=== PATIENT | male | born 1955 | race Caucasian/White ===

== ENCOUNTER 2019-05-05 10:19 | Inpatient (IN) | payer BC ==
[2019-05-05] MEDS ORDERED: ACETAMINOPHEN TAB 500 MG TAB PO STA (11:26)
[2019-05-05] MEDS ORDERED: PANTOPRAZOLE 40 MG/10 ML VIAL IVP STA (11:27)
--- NOTE | 2019-05-05 11:31 | ED ---
General Adult HPI - General Chief complaint: GI Bleed Stated complaint: abd pain/dark stool/poss dehydration Time Seen by Provider: 05/05/19 10:58 Source: patient, family, RN notes reviewed Mode of arrival: ambulatory Limitations: no limitations - History of Present Illness Initial comments: Patient is a pleasant 63-year-old male presenting to the emergency Department with diarrhea, abdominal discomfort and fever. Onset of symptoms was several days ago. Patient is having watery stool. Stool at times is dark or black or green. Patient has had decreased appetite and decreased oral intake. Patient has discomfort mostly of his lower abdomen, mostly in the left side. Patient has had fevers chills and myalgias. No history of similar symptoms previously. Patient does feel somewhat fatigued. - Related Data Home Medications Medication Instructions Recorded Confirmed No Known Home Medications 10/19/15 05/05/19 Allergies Allergy/AdvReac Type Severity Reaction Status Date / Time gluten AdvReac congested Verified 05/05/19 11:50 latex AdvReac congested Verified 05/05/19 11:50 Review of Systems ROS Statement: Those systems with pertinent positive or pertinent negative responses have been documented in the HPI. ROS Other: All systems not noted in ROS Statement are negative. Constitutional: Reports: fever, chills Eyes: Denies: eye pain ENT: Denies: ear pain Respiratory: Denies: cough, dyspnea Cardiovascular: Denies: chest pain Endocrine: Reports: fatigue Gastrointestinal: Reports: abdominal pain, diarrhea, melena Genitourinary: Denies: dysuria Musculoskeletal: Denies: back pain Skin: Denies: rash Neurological: Denies: headache Past Medical History Additional Past Medical History / Comment(s): tinnitis History of Any Multi-Drug Resistant Organisms: None Reported Past Surgical History: Orthopedic Surgery Additional Past Surgical History / Comment(s): arthroscopy knee,colonoscopy Past Anesthesia/Blood Transfusion Reactions: No Reported Reaction Smoking Status: Never smoker Past Alcohol Use History: None Reported Past Drug Use History: None Reported - Past Family History Mother Family Medical History: Cancer Additional Family Medical History / Comment(s): breast Father Family Medical History: Liver Disease General Exam Limitations: no limitations General appearance: alert, in no apparent distress Head exam: Present: normocephalic Eye exam: Present: normal appearance, PERRL ENT exam: Present: normal oropharynx Neck exam: Present: normal inspection Respiratory exam: Present: normal lung sounds bilaterally Cardiovascular Exam: Present: normal rhythm, tachycardia Expanded Peripheral pulses: 2+: Posterior Tibialis (R), Posterior Tibialis (L), Dorsalis Pedis (R), Dorsalis Pedis (L) GI/Abdominal exam: Present: soft, tenderness (Mild tenderness left lower abdomen), normal bowel sounds. Absent: distended, guarding, rebound, rigid, pulsatile mass Rectal exam: Present: normal inspection, normal rectal tone, other (No stool on exam) Extremities exam: Present: normal inspection Back exam: Present: normal inspection Neurological exam: Present: alert Psychiatric exam: Present: normal affect, normal mood Skin exam: Present: normal color Course Vital Signs 05/05/19 05/05/19 10:28 11:28 Temperature 100.4 F H 98.3 F Pulse Rate 139 H Respiratory 18 Rate Blood Pressure 101/68 O2 Sat by Pulse 97 Oximetry - Reevaluation(s) Reevaluation #1: 05/05/19 13:21 Patient does meet sepsis criteria diagnosed at 1320. Blood culture and lactic acid ordered. IV antibiotics will be ordered. EKG Findings - EKG Comments: EKG Findings:: Normal sinus rhythm 96. UT 166. QRS 84. QT 358. C4 2. Normal axis. Normal QRS. No acute ST change. Medical Decision Making - Medical Decision Making Patient reevaluated and resting comfortably in bed. Patient and family updated on results and plan. Case was discussed in detail with Dr. lopez, covering for Dr. Anthony asked, who will admit covering for Dr. Melton. He does request GI consult and Zosyn. - Lab Data Result diagrams: 05/05/19 11:20 05/05/19 11:20 Lab Results 05/05/19 05/05/19 05/05/19 Range/Units 11:20 11:20 11:20 WBC 7.4 (3.8-10.6) k/uL RBC 5.40 (4.30-5.90) m/uL Hgb 16.4 (13.0-17.5) gm/dL Hct 48.1 (39.0-53.0) % MCV 89.1 (80.0-100.0) fL MCH 30.4 (25.0-35.0) pg MCHC 34.1 (31.0-37.0) g/dL RDW 12.4 (11.5-15.5) % Plt Count 116 L (150-450) k/uL Neutrophils % 92 % Lymphocytes % 3 % Monocytes % 4 % Eosinophils % 1 % Basophils % 0 % Neutrophils # 6.8 (1.3-7.7) k/uL Lymphocytes # 0.2 L (1.0-4.8) k/uL Monocytes # 0.3 (0-1.0) k/uL Eosinophils # 0.0 (0-0.7) k/uL Basophils # 0.0 (0-0.2) k/uL PT (9.0-12.0) sec INR (<1.2) APTT (22.0-30.0) sec Sodium 129 L (137-145) mmol/L Potassium 3.9 (3.5-5.1) mmol/L Chloride 93 L (98-107) mmol/L Carbon Dioxide 21 L (22-30) mmol/L Anion Gap 15 mmol/L BUN 19 (9-20) mg/dL Creatinine 1.09 (0.66-1.25) mg/dL Est GFR (CKD-EPI)AfAm 84 (>60 ml/min/1.73 sqM) Est GFR (CKD-EPI)NonAf 72 (>60 ml/min/1.73 sqM) Glucose 158 H (74-99) mg/dL Plasma Lactic Acid Zechariah 1.8 (0.7-2.0) mmol/L Calcium 9.0 (8.4-10.2) mg/dL Total Bilirubin 1.7 H (0.2-1.3) mg/dL AST 105 H (17-59) U/L ALT 115 H (4-49) U/L Alkaline Phosphatase 136 H (38-126) U/L Total Protein 7.1 (6.3-8.2) g/dL Albumin 4.2 (3.5-5.0) g/dL Stool Occult Blood (Negative) 05/05/19 05/05/19 Range/Units 11:20 11:20 WBC (3.8-10.6) k/uL RBC (4.30-5.90) m/uL Hgb (13.0-17.5) gm/dL Hct (39.0-53.0) % MCV (80.0-100.0) fL MCH (25.0-35.0) pg MCHC (31.0-37.0) g/dL RDW (11.5-15.5) % Plt Count (150-450) k/uL Neutrophils % % Lymphocytes % % Monocytes % % Eosinophils % % Basophils % % Neutrophils # (1.3-7.7) k/uL Lymphocytes # (1.0-4.8) k/uL Monocytes # (0-1.0) k/uL Eosinophils # (0-0.7) k/uL Basophils # (0-0.2) k/uL PT 10.8 (9.0-12.0) sec INR 1.1 (<1.2) APTT 28.5 (22.0-30.0) sec Sodium (137-145) mmol/L Potassium (3.5-5.1) mmol/L Chloride (98-107) mmol/L Carbon Dioxide (22-30) mmol/L Anion Gap mmol/L BUN (9-20) mg/dL Creatinine (0.66-1.25) mg/dL Est GFR (CKD-EPI)AfAm (>60 ml/min/1.73 sqM) Est GFR (CKD-EPI)NonAf (>60 ml/min/1.73 sqM) Glucose (74-99) mg/dL Plasma Lactic Acid Zechariah (0.7-2.0) mmol/L Calcium (8.4-10.2) mg/dL Total Bilirubin (0.2-1.3) mg/dL AST (17-59) U/L ALT (4-49) U/L Alkaline Phosphatase (38-126) U/L Total Protein (6.3-8.2) g/dL Albumin (3.5-5.0) g/dL Stool Occult Blood Positive (Negative) - Radiology Data Radiology results: report reviewed (Computed tomography scan concerning for colitis) Critical Care Time Critical Care Time: Yes Total Critical Care Time: 32 Disposition Clinical Impression: Gastrointestinal hemorrhage, Colitis, Sepsis Disposition: ADMITTED IP TO THIS [facility] Is patient prescribed a controlled substance at d/c from ED?: No Referrals: Anish Melton DO [Primary Care Provider] - 1-2 days Decision Time: 13:20
[2019-05-05] MEDS: SODIUM CHLORIDE 0.9% 1,000 ML IV SCH ×2 (11:35→20:39)
[2019-05-05] MEDS: SODIUM CHLORIDE 0.9% 500 ML 500 ML IV SCH ×2 (11:35→11:36)
[2019-05-05 11:37] LABS: Basophils % (A) 0 %; Eosinophils % (A) 1 %; HCT 48.1 % (39.0-53.0); HGB 16.4 gm/dL (13.0-17.5); Lymphocytes # (A) 0.2 k/uL (1.0-4.8); Lymphocytes % (A) 3 %; MCH 30.4 pg (25.0-35.0); MCHC 34.1 g/dL (31.0-37.0); MCV 89.1 fL (80.0-100.0); Monocytes # (A) 0.3 k/uL (0-1.0); Monocytes % (A) 4 %; Neutrophils # (A) 6.8 k/uL (1.3-7.7); Neutrophils % (A) 92 %; Platelet Count 116 k/uL (150-450); RDW 12.4 % (11.5-15.5); WBC 7.4 k/uL (3.8-10.6)
[2019-05-05 11:47] LABS: Albumin 4.2 g/dL (3.5-5.0); Potassium 3.9 mmol/L (3.5-5.1); Total Bilirubin 1.7 mg/dL (0.2-1.3); Total Protein 7.1 g/dL (6.3-8.2)
[2019-05-05 11:48] LABS: INR 1.1 (<1.2); Partial Thromboplastin Time 28.5 sec (22.0-30.0); Prothrombin Time 10.8 sec (9.0-12.0)
--- NOTE | 2019-05-05 12:38 | XR ---
EXAMINATION TYPE: XR chest 2V DATE OF EXAM: 05/05/2019 COMPARISON: NONE TECHNIQUE: PA and lateral views submitted. HISTORY: Fever FINDINGS: The lungs are clear and there is no pneumothorax, pleural effusion, or focal pneumonia. No overt rosa lure. Arthropathy shoulders. Heart size normal. IMPRESSION: 1. No acute process.
--- NOTE | 2019-05-05 12:55 | CT ---
EXAMINATION TYPE: CT abdomen pelvis w con DATE OF EXAM: 05/05/2019 COMPARISON: None HISTORY: Low Abdominal pain with bowel changes. CT DLP: 830.3 mGycm Automated exposure control for dose reduction was used. TECHNIQUE: Helical acquisition of images from the lung bases through the pelvis have been completed. CONTRAST: Performed without Oral Contrast and with IV Contrast, patient injected with 100 mL of Isovue 300. FINDINGS: Stomach wall shows thickening possibly due to lack of distention. LUNG BASES: No significant abnormality is appreciated. AORTA: No significant abnormality is appreciated. LIVER/GB: The liver is enlarged. Liver shows low attenuation possibly due to hepatic steatosis. Gallb ladder is normal. PANCREAS: No significant abnormality is seen. SPLEEN: No significant abnormality is seen. ADRENALS: No significant abnormality is seen. KIDNEYS: Nonobstructive calculus present at the lower pole left kidney, subcentimeter cortical cyst p resent in the midpole laterally. REPRODUCTIVE ORGANS: Prostate is enlarged and shows associated calcification. BOWEL: There is abnormal thickening of the colonic wall, pericolonic inflammatory changes are presen t. Some scattered diverticular changes also present. Is likely duodenal diverticulum the head of the pancreas. FREE AIR: No Free Air visible. ASCITES: None visible. PELVIC ADENOPATHY: None visualized. RETROPERITONEAL ADENOPATHY: No Retroperitoneal Adenopathy visible. URINARY BLADDER: Urinary bladder wall is thickened possibly due to lack of distention, correlate to exclude cystitis. OSSEOUS STRUCTURES: Degenerative disc changes are present in the lower lumbar spine, there is loss o f disc height L4-5 and L5-S1, there is spinal curvature present.. IMPRESSION: CORRELATE FOR COLITIS. FINDINGS IN THE BLADDER DESCRIBED. HEPATOMEGALY, HEPATIC STEATOSIS. NONOBST RUCTIVE LEFT NEPHROLITHIASIS. ADDITIONAL FINDINGS ABOVE.
[2019-05-05] MEDS ORDERED: PIPERACILLIN-TAZOBACTAM 3.375 GM in SODIUM CHLORIDE 0.9% 100 ML IVPB STA (13:21)
[2019-05-05] MEDS ORDERED: MORPHINE SULFATE 4 MG/ML SYRINGE IV PRN (13:22)
[2019-05-05] MEDS ORDERED: NALOXONE 0.4 MG/ML 1 ML VIAL IV PRN (13:22)
[2019-05-05 13:33] LABS: Appearance,Urine Clear (Clear); Bilirubin,Urine Negative (Negative); Blood,Urine Small (Negative); Color,Urine Amber; Glucose,Urine (UA) Negative (Negative); Ketones,Urine 2+ (Negative); Protein,Urine Negative (Negative); Specific Gravity,Urine 1.015 (1.001-1.035)
[2019-05-05 13:34] LABS: Leukocyte Esterase,Urine Negative (Negative); Nitrite,Urine Negative (Negative)
[2019-05-05] MEDS ORDERED: LEVOFLOXACIN 500MG-D5W PMX 500 MG in DEXTROSE/WATER 1 100ML.BAG IVPB SCH (15:00)
--- NOTE | 2019-05-05 16:40 | P.HPIM ---
History of Present Illness This is a pleasant 63 years old male with no significant past medical history. He has difficulty hearing He presents because of loose bowel movement and abdominal pain, patient states that he had flulike symptoms about one week ago with fever which is improved however he is, and with lower abdominal pain, more to the left side felt like achy pain about 5/10 in severity improved with morphine down to 1.2/10, patient is nonradiating and associated with nausea but not vomiting and watery bowel movement associated with decreased oral intake, the stool is Dr. Cm in color as per patient and he has not been eating except for fluids for the last 4-5 days as per patient He denies smoking or illicit tracts, he drinks alcohol occasionally On admission he had a fever of 100.4, heart rate was 139, currently 79 blood pressure 107/63, or some Vitas looks stable. WBC is normal at 7.4K, rest of CBC and INR within normal limits, sodium low at 129, creatinine 1.09, glucose 158, total bilirubin 1.7, liver enzymes mildly elevated with AST 105 and ALT 115, urinalysis is suspicious for infection, he has positive occult blood in stool CT of the abdomen and pelvis with contrast showing a large liver possibly hepatic steatosis, normal gallbladder. Nonobstructing left kidney stone, a large prostate, colon wall thickening. Chest x-ray: No acute process per radiologist. In the emergency room patient was started on Levaquin and Flagyl, as well as morphine, Zosyn on Protonix, patient continued on normal saline at 130 mL/h Blood culture was collected, C. diff, stool culture were ordered Review of Systems CONSTITUTIONAL: No fever, no malaise, no fatigue. HEENT: No recent visual problems or hearing problems. Denied any sore throat. CARDIOVASCULAR: No orthopnea, PND, no palpitations, no syncope. PULMONARY: No shortness of breath, no cough, no hemoptysis. GASTROINTESTINAL: Normoactive bowel sounds. NEUROLOGICAL: No headaches, no weakness, no numbness. HEMATOLOGICAL: Denies any bleeding or petechiae. GENITOURINARY: Denies any burning micturition, frequency, or urgency. MUSCULOSKELETAL/RHEUMATOLOGICAL: Denies any joint pain, swelling, or any muscle pain. ENDOCRINE: Denies any polyuria or polydipsia. Past Medical History Additional Past Medical History / Comment(s): tinnitis History of Any Multi-Drug Resistant Organisms: None Reported Past Surgical History: Orthopedic Surgery Additional Past Surgical History / Comment(s): arthroscopy knee,colonoscopy Past Anesthesia/Blood Transfusion Reactions: No Reported Reaction Smoking Status: Never smoker Past Alcohol Use History: None Reported Past Drug Use History: None Reported - Past Family History Mother Family Medical History: Cancer Additional Family Medical History / Comment(s): breast Father Family Medical History: Liver Disease Medications and Allergies Home Medications Medication Instructions Recorded Confirmed Type No Known Home Medications 10/19/15 05/05/19 History Allergies Allergy/AdvReac Type Severity Reaction Status Date / Time gluten AdvReac congested Verified 05/05/19 11:50 latex AdvReac congested Verified 05/05/19 11:50 Physical Exam Vitals: Vital Signs Temp Pulse Resp BP Pulse Ox 05/05/19 15:22 98.0 F 79 18 107/63 99 05/05/19 13:00 98.7 F 84 16 104/72 98 05/05/19 11:28 98.3 F 05/05/19 10:28 100.4 F H 139 H 18 101/68 97 Intake and Output 05/05/19 05/05/19 05/05/19 06:59 14:59 22:59 Other: Weight 78.018 kg GENERAL: The patient is alert and oriented x3, not in any acute distress. Well developed, well nourished. HEENT: Pupils are round and equally reacting to light. EOMI. No scleral icterus. No conjunctival pallor. Normocephalic, atraumatic. No pharyngeal erythema. No thyromegaly. CARDIOVASCULAR: S1 and S2 present. No murmurs, rubs, or gallops. PULMONARY: Chest is clear to auscultation, no wheezing or crackles. -ABDOMEN: Soft, mild lower abdominal tenderness only on the left, no guarding or rebound tenderness, nondistended, normoactive bowel sounds. No palpable organomegaly. MUSCULOSKELETAL: No joint swelling or deformity. EXTREMITIES: No cyanosis, clubbing, or pedal edema. NEUROLOGICAL: Gross neurological examination did not reveal any focal deficits. SKIN: No rashes. No petechiae Results CBC & Chem 7: 05/05/19 11:20 05/05/19 11:20 Labs: Abnormal Lab Results - Last 24 Hours (Table) 05/05/19 05/05/19 05/05/19 Range/Units 11:20 11:20 12:20 Plt Count 116 L (150-450) k/uL Lymphocytes # 0.2 L (1.0-4.8) k/uL Sodium 129 L (137-145) mmol/L Chloride 93 L (98-107) mmol/L Carbon Dioxide 21 L (22-30) mmol/L Glucose 158 H (74-99) mg/dL Total Bilirubin 1.7 H (0.2-1.3) mg/dL AST 105 H (17-59) U/L ALT 115 H (4-49) U/L Alkaline Phosphatase 136 H (38-126) U/L Urine Ketones 2+ H (Negative) Assessment and Plan Assessment: acute colitis, with Positive occult blood in the stool Systemic inflammatory response with fever and tachycardia, possible sepsis secondary to above Hyponatremia Dehydration Plan: This is a pleasant 63 years old male who presents with acute colitis, continue with antibiotic with Levaquin and Flagyl, continue with normal saline hydration, follow-up culture results.Follow-up stool studies. Follow-up recommendation by GI team Labs and medication were reviewed.. Continue same treatment. Continue with symptomatic treatment. Resume home medication. Monitor lytes and vitals. DVT and GI prophylaxis. Further recommendations of the clinical course of the patient DVT prophylaxis No heparin in view of possible GI bleeds with positive occult blood in stool GI Prophylaxis Protonix PT/OT: Pending Prognosis is guarded
[2019-05-05] MEDS: metroNIDAZOLE-NS PMX 500 MG in SALINE 1 100ML.BAG IVPB SCH (17:16)
[2019-05-05] MEDS ORDERED: ONDANSETRON 4 MG/2 ML VIAL IVP PRN (20:53)
--- NOTE | 2019-05-05 21:08 | CONS ---
CONSULTATION DATE OF DICTATION: 05/05/2019 REASON FOR CONSULTATION: Acute diarrhea and lower abdominal pain of 5 days' duration. HISTORY OF PRESENT ILLNESS: The patient is a 63-year-old pleasant white male who came to the emergency room complaining of severe diarrhea that started approximately 5 days ago. He went to [place] with his family and he started having severe lower abdominal pain followed by watery bowel movements anywhere from 15-20 a day. He felt somewhat feverish and had some chills. He came back home 2 days ago. While in [place] his brother had similar symptoms and a couple of his friends, also. He continued to have worsening lower abdominal discomfort with bowel movements anywhere from 30 minutes to 45 minutes as well as nocturnal diarrhea. He lost about 5 or 6 pounds. He never had these symptoms in the past. He denies any recent antibiotic use. He reports no nausea, vomiting. Pain is mostly in the lower abdominal area. He denies any bleeding or black stool. He presently takes no medications. PAST MEDICAL HISTORY: Significant for tinnitus. PAST SURGICAL HISTORY: Knee arthroscopy, colonoscopy 2016. MEDICATIONS AT HOME: None. DRUG ALLERGIES: NO KNOWN DRUG ALLERGIES. SOCIAL HISTORY: Not a smoker. No alcohol use. FAMILY HISTORY: Mother had breast cancer. Father had liver disease. REVIEW OF SYSTEMS: CARDIOPULMONARY: No chest pain or shortness of breath. GENITOURINARY: No dysuria or hematuria. MUSCULOSKELETAL: Unremarkable. SKIN: Unremarkable. ENDOCRINE: Unremarkable. PSYCHIATRIC: Unremarkable. NEUROLOGY: Unremarkable. ENT/VISION: Unremarkable. CONSTITUTIONAL: No recent weight loss. No fever, chills, night sweats. ENDOCRINE unremarkable. HEMATOLOGY unremarkable. PHYSICAL EXAMINATION: He appears comfortable. No apparent distress. VITAL SIGNS: Stable. Blood pressure is 107/63, pulse rate 79, temperature 98. T-max was 100.4. HEENT examination unremarkable. Conjunctivae pink. Sclerae anicteric. Oral cavity no lesions. NECK: No JVD or lymph node enlargement. CHEST: Clear to auscultation. HEART: Regular rate and rhythm. ABDOMEN: Soft. There was mild tenderness in the left lower quadrant area, suprapubic area and right lower quadrant area. Rest of the abdomen was benign. Bowel sounds are positive. EXTREMITIES: No pedal edema. SKIN: No rashes. NEUROLOGIC: Alert and oriented x3. No focal deficits. LABS/IMAGING: WBC 7.4, hemoglobin 16.4, platelets 116. Sodium 129, potassium 3.9, chloride 93, CO2 21, BUN 19, creatinine 1.09. PT and INR within normal limits. AST and ALT are 105 and 115, respectively, alkaline phosphatase 136, and T-bilirubin is 1.7. Stool occult blood was positive. CT of the abdomen and pelvis done in the emergency room this afternoon showed abnormal thickening of the colonic wall with pericolonic inflammatory changes consistent with acute colitis. Scattered diverticulosis was also seen. IMPRESSION: 1. This is a patient who presented to the hospital with acute onset of severe lower abdominal pain followed by severe diarrhea for the last 5 days' duration. Symptoms started when he traveled to [place] a week ago. His brother also has diarrhea and some of his friends, too. He had low-grade fever, and at the time of admission to the hospital T-max was 100.4. Likely we are dealing with infectious gastroenteritis, possibly viral, possibly bacterial in etiology. 2. Acute dehydration. 3. Mild elevation of serum transaminases of unclear etiology. RECOMMENDATIONS: 1. Stool studies. 2. C difficile toxin. 3. Clear liquid diet. 4. Empiric antibiotics with Levaquin and Flagyl. 5. Repeat labs in the morning. 6. Repeat LFTs and obtain hepatitis serologies for A, B and C. We will follow with you closely. Thank you for this consultation. MMDANIELEL / IJN: [id number] /
[2019-05-05] MEDS: ACETAMINOPHEN TAB 325 MG TAB PO PRN (21:14)
[2019-05-05] MEDS ORDERED: PIPERACILLIN-TAZOBACTAM 3.375 GM in SODIUM CHLORIDE 0.9% 100 ML IVPB SCH (22:00)
[2019-05-05 22:41] LABS: Urobilinogen,Urine <2.0 mg/dL (<2.0)
[2019-05-06] MEDS: metroNIDAZOLE-NS PMX 500 MG in SALINE 1 100ML.BAG IVPB SCH ×2 (00:39→08:15)
[2019-05-06] MEDS: SODIUM CHLORIDE 0.9% 1,000 ML IV SCH ×3 (05:20→18:35)
[2019-05-06] MEDS: PANTOPRAZOLE 40 MG/10 ML VIAL IV SCH (08:15)
[2019-05-06 10:50] LABS: ALT 85 U/L (4-49); AST 80 U/L (17-59); African American GFR (CKD) >90 (>60 ml/min/1.73 sqM); Alkaline Phosphatase 122 U/L (38-126); Anion Gap 7 mmol/L; Blood Urea Nitrogen 12 mg/dL (9-20); Carbon Dioxide 26 mmol/L (22-30); Chloride 98 mmol/L (98-107); Glucose 113 mg/dL (74-99); Non-African American GFR(CKD) >90 (>60 ml/min/1.73 sqM); Potassium 3.1 mmol/L (3.5-5.1); Sodium 131 mmol/L (137-145); Total Bilirubin 1.1 mg/dL (0.2-1.3); Total Protein 5.4 g/dL (6.3-8.2)
[2019-05-06 11:17] LABS: Basophils % (A) 0 %; Eosinophils % (A) 1 %; HCT 38.9 % (39.0-53.0); Lymphocytes # (A) 0.6 k/uL (1.0-4.8); Lymphocytes % (A) 10 %; MCH 30.1 pg (25.0-35.0); MCHC 34.3 g/dL (31.0-37.0); MCV 87.7 fL (80.0-100.0); Mean Platelet Volume 9.1; Monocytes # (A) 0.4 k/uL (0-1.0); Monocytes % (A) 7 %; Neutrophils # (A) 4.7 k/uL (1.3-7.7); Neutrophils % (A) 79 %; Platelet Count 120 k/uL (150-450); RBC 4.43 m/uL (4.30-5.90); RDW 12.5 % (11.5-15.5); WBC 5.9 k/uL (3.8-10.6)
[2019-05-06 11:23] LABS: HGB 13.3 gm/dL (13.0-17.5)
[2019-05-06] MEDS: ENOXAPARIN 40 MG/0.4 ML SYRINGE SQ SCH (13:00)
[2019-05-06] MEDS: metroNIDAZOLE 500 MG TAB PO SCH ×2 (14:55→22:50)
[2019-05-06] MEDS: ACETAMINOPHEN TAB 325 MG TAB PO PRN (14:55)
[2019-05-06] MEDS ORDERED: LEVOFLOXACIN 750 MG TAB PO SCH (16:00)
[2019-05-06 16:52] LABS: Hepatitis A Antibody IgM Non-Reactive (Non-Reactive); Hepatitis B Core IgM Non-Reactive (Non-Reactive); Hepatitis B Surface Antigen Non-Reactive (Non-Reactive); Hepatitis C IgG Antibody Non-Reactive (Non-Reactive)
--- NOTE | 2019-05-06 21:03 | PN ---
PROGRESS NOTE DATE OF DICTATION: 05/06/2019 This patient is a 63-year-old pleasant white male admitted to the hospital with severe diarrhea for the last 4 days' duration. He was having 10 to 15 bowel movements daily with no blood or mucus in the stool. Stool studies have been requested. C difficile was negative. The rest of them are pending. Today he is feeling better. He had two bowel movements so far, still loose in consistency, with cramping lower abdominal pain. No nausea or vomiting. On clear liquid diet, tolerating well. He denies any fever, chills, night sweats. PHYSICAL EXAMINATION: Appears comfortable. No apparent distress. VITAL SIGNS: Stable. Blood pressure 145/81, pulse rate 86, temperature 97.8. HEENT examination unremarkable. Conjunctivae pink. Sclerae anicteric. Oral cavity no lesions. NECK: No JVD or lymph node enlargement. CHEST: Clear to auscultation. HEART: Regular rate and rhythm. ABDOMEN: Soft. Bowel sounds are positive. No organomegaly. Mild tenderness in the lower abdominal area. EXTREMITIES: No pedal edema. SKIN: No rashes. NEUROLOGIC: Alert and oriented x3. No focal deficits. LABS: WBC 5.9, hemoglobin 13.3, platelets 120. BUN and creatinine are 12 and 0.62, respectively. AST and ALT are 80 and 85, respectively. Hepatitis serologies for A, B and C were negative. IMPRESSION: Acute diarrhea for the last 5 days' duration, possibly infectious in etiology. Patient on empiric antibiotics. Stool for C difficile toxin has been negative. He remains on ceftriaxone and Flagyl, and symptoms are gradually improving. Stool studies so far have been negative. RECOMMENDATIONS: 1. Continue empiric antibiotics. 2. Advance diet as tolerated. 3. Await the rest of the stool studies. 4. Will follow with you closely. Thank you for this consultation. MMODL / IJN: [id number] /
--- NOTE | 2019-05-06 22:56 | P.PN ---
Progress Note - Text Progress Note Date: 05/06/19 Presenting complaint: Diarrhea Interval history: Patient admitted with 5 days' duration of diarrhea. No blood. On empiric antibiotics Today-feeling better. On clear liquid diet. Her nausea vomiting. No fever no chills. Review of systems: Was done for constitutional, cardiovascular, GI, pulmonary. relevant finding as above Active Medications Acetaminophen (Tylenol Tab) 650 mg PO Q6HR PRN PRN Reason: Fever and/ or Pain Last Admin: 05/06/19 14:55 Dose: 650 mg Documented by: Enoxaparin Sodium (Lovenox) 40 mg SQ DAILY [facility] Last Admin: 05/06/19 13:00 Dose: 40 mg Documented by: Sodium Chloride (Saline 0.9%) 1,000 mls @ 130 mls/hr IV .Q7H42M [facility] Last Admin: 05/06/19 18:35 Dose: 130 mls/hr Documented by: Ceftriaxone Sodium 2 gm/ (Sodium Chloride) 50 mls @ 100 mls/hr IVPB Q24H [facility] Last Admin: 05/06/19 16:33 Dose: 100 mls/hr Documented by: Lactated Ringer's (Lactated Ringers) 1,000 mls @ 20 mls/hr IV .Q24H [facility] Metronidazole (Flagyl) 500 mg PO TID [facility] Last Admin: 05/06/19 22:50 Dose: 500 mg Documented by: Morphine Sulfate (Morphine Sulfate (Inj)) 4 mg IV Q4HR PRN PRN Reason: Severe Pain Last Admin: 05/05/19 13:52 Dose: 4 mg Documented by: Naloxone HCl (Narcan) 0.2 mg IV Q2M PRN PRN Reason: Opioid Reversal Ondansetron HCl (Zofran) 4 mg IVP Q6HR PRN PRN Reason: Nausea And Vomiting Pantoprazole Sodium (Protonix) 40 mg IV DAILY [facility] Last Admin: 05/06/19 08:15 Dose: 40 mg Documented by: On examination: VITAL SIGNS: 97.8, 86, 16, 145/81, 99% room air GENERAL APPEARANCE: Laying in bed comfortable HEENT: Normal external appearance of nose and ear. Oral cavity normal EYES: Pupils equal. Conjunctiva normal. NECK: JVD not raised. Mass not palpable. RESPIRATORY: Respiratory effort normal. Lungs clear to auscultation. CARDIOVASCULAR: First and second sounds normal. No edema. ABDOMEN: Soft. Minimally tender, no guarding or rigidity Liver and spleen not palpable.. PSYCHIATRY: Alert and oriented x3. Mood and affect normal. . INVESTIGATIONS, reviewed in the clinical context: White count 5.9 hemoglobin 13.3 platelets 120 potassium 3.1 creatinine 0.62 Total bilirubin 1.1 AST 18 ALT 85 Acute hepatitis screen-negative C. diff negative Assessment: -Acute infectious diarrhea could be bacterial, being treated empirically -Acute infectious hepatitis self-limiting coming down -Chronic tinnitus -Thrombocytopenia could be from acute infection -Hyponatremia likely hypoosmolar -Hypokalemia from diarrhea Plan: Continue diabetic antibiotics. Advance to full liquids this evening. Care was discussed with the patient. GI is following.
--- NOTE | 2019-05-06 23:57 | P.CONS ---
History of Present Illness - Reason for Consult Consult date: 05/06/19 Gram-negative bacteremia Requesting physician: Yoan E Sheet - Chief Complaint Diarrhea and abdominal pain x 4 days - History of Present Illness Patient is a 63-year-old male otherwise healthy, presenting to the ER with chief complaints of abdominal pain and diarrhea that has been going on for about 4 days before he presented to hospital patient did have multiple loose stools describing them to be watery and has been getting more green, the patient denies having any blood or mucus in the stools patient had been complaining of pain mostly the left lower abdominal area is November the pain to be crampy with intensity of almost 6-7 out of 10 and no radiation patient has felt nauseated but no vomiting and has been combining of fever with rigors and chills with the symptom has the patient was evaluated by the ER physician on arrival to the area initial ABG have low-grade fever 100.5 subsequently spike a fever of 101F patient also tachycardic he did have a CT of abdominal pelvis that was suggestive of colitis white count was normal, patient stool for C. diff is negative and stool cultures currently pending, patient also noticed to have elevated liver enzymes, hepatitis serology so far negative ,patient was started on Levaquin and Flagyl subsequently he did have blood cultures done which came back positive with gram-negative bacilli that after this infection disease consultation, the patient denies having any burning or frequency of urine and t he patient UA has been negative Review of Systems Positive point has been mentioned in the HPI rest of the systems are negative Past Medical History Additional Past Medical History / Comment(s): tinnitis History of Any Multi-Drug Resistant Organisms: None Reported Past Surgical History: Orthopedic Surgery Additional Past Surgical History / Comment(s): arthroscopy knee,colonoscopy Past Anesthesia/Blood Transfusion Reactions: No Reported Reaction Smoking Status: Never smoker Past Alcohol Use History: None Reported Past Drug Use History: None Reported - Past Family History Mother Family Medical History: Cancer Additional Family Medical History / Comment(s): breast Father Family Medical History: Liver Disease Medications and Allergies Home Medications Medication Instructions Recorded Confirmed Type No Known Home Medications 10/19/15 05/05/19 History Allergies Allergy/AdvReac Type Severity Reaction Status Date / Time gluten AdvReac congested Verified 05/05/19 11:50 latex AdvReac congested Verified 05/05/19 11:50 Physical Exam Vitals: Vital Signs Temp Pulse Pulse Resp BP BP Pulse Ox 05/06/19 06:05 97.7 F 84 16 141/89 97 05/06/19 00:05 98.8 F 05/05/19 22:26 100.8 F H 05/05/19 21:00 102.3 F H 106 H 15 138/85 99 05/05/19 16:05 97.6 F 85 16 108/63 99 05/05/19 15:22 98.0 F 79 18 107/63 99 Intake and Output 05/05/19 05/06/19 05/06/19 22:59 06:59 14:59 Intake Total 300 800 Balance 300 800 Intake: Oral 300 800 Other: # Voids 2 2 # Bowel Movements 1 Weight 78.018 kg GENERAL DESCRIPTION: Middle-aged male lying in bed, no distress. No tachypnea or accessory muscle of respiration use. HEENT: Shows Pallor , no scleral icterus. Oral mucous membrane is dry. No p haryngeal erythema or thrush NECK: Trachea central, no thyromegaly. LUNGS: Unlabored breathing. Clear to auscultation anteriorly. No wheeze or crackle. HEART: S1, S2, regular rate and rhythm. No loud murmur ABDOMEN: Soft, mild left lower quadrant tenderness , guarding or rigidity, no organomegaly EXTREMITIES: No edema of feet. SKIN: No rash, no masses palpable. NEUROLOGICAL: The patient is awake, alert, oriented x3, mood and affect normal. Results CBC & Chem 7: 05/06/19 09:49 05/06/19 09:49 Labs: Abnormal Lab Results - Last 24 Hours (Table) 05/05/19 05/06/19 05/06/19 Range/Units 12:20 09:49 09:49 Hct 38.9 L (39.0-53.0) % Plt Count 120 L (150-450) k/uL Lymphocytes # 0.6 L (1.0-4.8) k/uL Sodium 131 L (137-145) mmol/L Potassium 3.1 L (3.5-5.1) mmol/L Creatinine 0.62 L (0.66-1.25) mg/dL Glucose 113 H (74-99) mg/dL Calcium 8.0 L (8.4-10.2) mg/dL AST 80 H (17-59) U/L ALT 85 H (4-49) U/L Total Protein 5.4 L (6.3-8.2) g/dL Albumin 3.0 L (3.5-5.0) g/dL Urine Ketones 2+ H (Negative) Microbiology - Last 24 Hours (Table) 05/05/19 03:06 Blood Culture Gram Stain - Preliminary Blood Blood Culture - Preliminary Escherichia coli 05/06/19 01:15 Stool Culture - Preliminary Stool 05/05/19 11:38 Blood Culture - Final Blood Assessment and Plan Assessment: 1-patient admitted hospital with sepsis in this patient who did have a fever tachycardia and significant GI symptoms of abdominal pain and diarrhea with evidence of colitis likely the source of this sepsis 2-patient with gram-negative bacteremia source is likely abdominal/colitis (1) Gram-negative bacteremia Current Visit: Yes Status: Acute Code(s): R78.81 - BACTEREMIA SNOMED Code(s): 295562941640 (2) Colitis Current Visit: Yes Status: Acute Code(s): K52.9 - NONINFECTIVE GASTROENTERITIS AND COLITIS, UNSPECIFIED SNOMED Code(s): 88373257 (3) Sepsis Current Visit: Yes Status: Acute Code(s): A41.9 - SEPSIS, UNSPECIFIED ORGANISM SNOMED Code(s): 11158025 Plan: 1-discontinue the Levaquin 2-start the patient Rocephin 2 g daily and continue with the Flagyl 3-IV fluids We will follow on clinical condition and cultures to further adjust medication if needed Thank you for this consultation will follow this patient with you
[2019-05-07] MEDS: SODIUM CHLORIDE 0.9% 1,000 ML IV SCH ×3 (03:35→16:42)
[2019-05-07] MEDS: ACETAMINOPHEN TAB 325 MG TAB PO PRN ×3 (06:20→21:59)
[2019-05-07] MEDS: LACTATED RINGERS 1,000 ML IV SCH ×2 (06:59→16:43)
[2019-05-07 08:47] LABS: ALT 73 U/L (4-49); AST 66 U/L (17-59); African American GFR (CKD) >90 (>60 ml/min/1.73 sqM); Albumin 2.9 g/dL (3.5-5.0); Alkaline Phosphatase 141 U/L (38-126); Anion Gap 9 mmol/L; Blood Urea Nitrogen 8 mg/dL (9-20); Calcium 7.9 mg/dL (8.4-10.2); Carbon Dioxide 24 mmol/L (22-30); Chloride 99 mmol/L (98-107); Glucose 94 mg/dL (74-99); Non-African American GFR(CKD) >90 (>60 ml/min/1.73 sqM); Potassium 2.9 mmol/L (3.5-5.1); Sodium 132 mmol/L (137-145); Total Bilirubin 0.9 mg/dL (0.2-1.3); Total Protein 5.4 g/dL (6.3-8.2)
[2019-05-07 09:11] LABS: HCT 37.8 % (39.0-53.0); HGB 13.1 gm/dL (13.0-17.5); MCH 30.1 pg (25.0-35.0); MCHC 34.6 g/dL (31.0-37.0); MCV 87.2 fL (80.0-100.0); Mean Platelet Volume 9.6; Platelet Count 133 k/uL (150-450); RBC 4.33 m/uL (4.30-5.90); RDW 12.5 % (11.5-15.5); WBC 6.5 k/uL (3.8-10.6)
[2019-05-07] MEDS ORDERED: Potassium Replacement Protocol 1 EACH MISC MISCELLANE PRN (09:12)
[2019-05-07] MEDS: metroNIDAZOLE 500 MG TAB PO SCH ×3 (09:23→22:01)
[2019-05-07] MEDS: PANTOPRAZOLE 40 MG/10 ML VIAL IV SCH (09:23)
[2019-05-07] MEDS: ENOXAPARIN 40 MG/0.4 ML SYRINGE SQ SCH (09:24)
[2019-05-07] MEDS: POTASSIUM CHLORIDE 10 MEQ in WATER FOR INJECTION 1 100ML.BAG IVPB SCH ×6 (10:55→17:51)
[2019-05-07 14:37] VITALS: RESP 16
--- NOTE | 2019-05-07 16:13 | PN ---
PROGRESS NOTE DATE OF SERVICE: 05/07/2019 REASON FOR FOLLOWUP: E coli bacteremia secondary to colitis. INTERVAL HISTORY: The patient is currently afebrile, has been breathing comfortably. The patient denies having any chest pain or shortness of breath or cough. Still has some lower abdominal discomfort, but that has improved, and the patient's diarrhea has resolved. The patient did have any bowel movement today. Denies any vomiting. PHYSICAL EXAMINATION: Blood pressure 145/85 with a pulse of 79, temperature 98.9. He is 98% on room air. General description is a middle-aged male up in the room in no distress. RESPIRATORY SYSTEM: Unlabored breathing. Clear to auscultation anteriorly. HEART: S1, S2. Regular rate and rhythm. ABDOMEN: Soft. No tenderness. LABS: Hemoglobin is 13.1, white count 6.5, creatinine 0.57. Stool for C difficile is negative. Hepatitis panel was negative. DIAGNOSTIC IMPRESSION AND PLAN: Patient with Escherichia coli bacteremia. Source is likely colitis. The patient's E coli is sensitive to Rocephin, which the patient is currently on. This will continue along with Flagyl and monitor his clinical course closely. Continue with supportive care. MMODL / IJN: [id number] /
[2019-05-07] MEDS ORDERED: POTASSIUM CHLORIDE ER 20 MEQ TAB.ER PO STA (16:43)
--- NOTE | 2019-05-07 16:43 | P.PN ---
Progress Note - Text Progress Note Date: 05/07/19 Presenting complaint: Diarrhea Interval history: Patient admitted with 5 days' duration of diarrhea. No blood. On empiric antibiotics Today-Saw the patient earlier today. Had had 3 BMs close to this morning. Feels a bit better. Did quit up to the hallway last night. Sitting up in a chair.. Review of systems: Was done for constitutional, cardiovascular, GI, pulmonary. relevant finding as above Active Medications Acetaminophen (Tylenol Tab) 650 mg PO Q6HR PRN PRN Reason: Fever and/ or Pain Last Admin: 05/07/19 12:14 Dose: 650 mg Documented by: Enoxaparin Sodium (Lovenox) 40 mg SQ DAILY [facility] Last Admin: 05/07/19 09:24 Dose: 40 mg Documented by: Sodium Chloride (Saline 0.9%) 1,000 mls @ 50 mls/hr IV .Q20H [facility] Last Admin: 05/07/19 09:23 Dose: 130 mls/hr Documented by: Ceftriaxone Sodium 2 gm/ (Sodium Chloride) 50 mls @ 100 mls/hr IVPB Q24H [facility] Last Admin: 05/06/19 16:33 Dose: 100 mls/hr Documented by: Lactated Ringer's (Lactated Ringers) 1,000 mls @ 20 mls/hr IV .Q24H [facility] Last Admin: 05/07/19 06:59 Dose: Not Given Documented by: Metronidazole (Flagyl) 500 mg PO TID [facility] Last Admin: 05/07/19 09:23 Dose: 500 mg Documented by: Miscellaneous Information (Potassium Per Protocol) 1 each MISCELLANE DAILY PRN; Protocol PRN Reason: Per Protocol Morphine Sulfate (Morphine Sulfate (Inj)) 4 mg IV Q4HR PRN PRN Reason: Severe Pain Last Admin: 05/05/19 13:52 Dose: 4 mg Documented by: Naloxone HCl (Narcan) 0.2 mg IV Q2M PRN PRN Reason: Opioid Reversal Ondansetron HCl (Zofran) 4 mg IVP Q6HR PRN PRN Reason: Nausea And Vomiting Pantoprazole Sodium (Protonix) 40 mg IV DAILY [facility] Last Admin: 05/07/19 09:23 Dose: 40 mg Documented by: On examination: VITAL SIGNS: 98.3, 68, 16, 1 35 x 80, 100% on room air GENERAL APPEARANCE: Sitting upon a chair HEENT: Normal external appearance of nose and ear. Oral cavity normal, decreased hearing chronic EYES: Pupils equal. Conjunctiva normal. NECK: JVD not raised. Mass not palpable. RESPIRATORY: Respiratory effort normal. Lungs clear to auscultation. CARDIOVASCULAR: First and second sounds normal. No edema. ABDOMEN: Soft. Minimally tender, no guarding or rigidity Liver and spleen not palpable.. PSYCHIATRY: Alert and oriented x3. Mood and affect normal. . INVESTIGATIONS, reviewed in the clinical context: White count 6.5 hemoglobin 13.1 potassium 2.9 and crit 0.57 Previous testing White count 5.9 hemoglobin 13.3 platelets 120 potassium 3.1 creatinine 0.62 Total bilirubin 1.1 AST 18 ALT 85 Acute hepatitis screen-negative C. diff negative Assessment: -Acute infectious diarrhea could be bacterial, being treated empirically -Acute infectious hepatitis self-limiting coming down -Chronic tinnitus -Thrombocytopenia could be from acute infection -Hyponatremia likely hypoosmolar -Hypokalemia from diarrhea Plan: Continue with IV fluids, replace potassium, continue with Flagyl and ceftriaxone. Follow electrolytes
--- NOTE | 2019-05-07 18:41 | PN ---
PROGRESS NOTE CONTINUATION: DATE OF SERVICE: 05/07/2019 PHYSICAL EXAMINATION: On physical examination, the patient appears comfortable, no apparent distress. VITAL SIGNS: Vital signs are stable. Blood pressure is 132/86, pulse rate 84 per minute, and afebrile. HEENT: Examination unremarkable. Conjunctivae pink. Sclerae anicteric. Oral cavity, no lesions. NECK: No JVD or lymph node enlargement. CHEST: Clear to auscultation. HEART: Regular rate and rhythm. ABDOMEN: Soft. Bowel sounds are positive. No organomegaly. EXTREMITIES: No pedal edema. SKIN: No rashes. NEUROLOGIC: Alert and oriented x3. No focal deficits. LABS: Labs from today, WBC 6.5, hemoglobin 13.1, platelets 133. Basic metabolic panel shows potassium of 2.9. BUN and creatinine are normal. IMPRESSION: Acute onset of diarrhea for the last one week's duration, most likely infectious etiology. So far stool cor C. difficile is negative and cultures are still pending. On empiric antibiotics, doing much better. Diarrhea has resolved. RECOMMENDATIONS: 1. Continue with antibiotics. 2. Advance to low fiber diet. 3. If his symptoms improve and diarrhea is improved, he can be discharged home tomorrow with outpatient follow up in two weeks. Thank you for this consultation. MMODL / IJN: [id number] /
[2019-05-08 04:44] VITALS: BP 157/83; PULSE 81; TEMP 98.3
[2019-05-08] MEDS: ENOXAPARIN 40 MG/0.4 ML SYRINGE SQ SCH (07:59)
[2019-05-08] MEDS: metroNIDAZOLE 500 MG TAB PO SCH (07:59)
[2019-05-08] MEDS: ACETAMINOPHEN TAB 325 MG TAB PO PRN (08:46)
[2019-05-08 09:43] LABS: African American GFR (CKD) >90 (>60 ml/min/1.73 sqM); Anion Gap 7 mmol/L; Blood Urea Nitrogen 7 mg/dL (9-20); Calcium 8.3 mg/dL (8.4-10.2); Carbon Dioxide 26 mmol/L (22-30); Chloride 101 mmol/L (98-107); Glucose 97 mg/dL (74-99); Non-African American GFR(CKD) >90 (>60 ml/min/1.73 sqM); Potassium 3.4 mmol/L (3.5-5.1); Sodium 134 mmol/L (137-145)
[2019-05-08] MEDS ORDERED: LORATADINE-PSEUDOEPH 5-120 MG 1 EACH TAB.ER.12H PO SCH (10:00)
--- NOTE | 2019-05-08 11:57 | PN ---
PROGRESS NOTE DATE OF DICTATION: 05/07/2019 This patient is a 63-year-old, pleasant, white male admitted to the hospital with one week of severe diarrhea and lower abdominal pain. Stool studies so far have been negative. He remains on empiric antibiotics with ceftriaxone and metronidazole and he is doing much better. He had only one bowel movement today which was solid. No bleeding. Abdominal pain is improving. On a regular diet, tolerating well. PHYSICAL EXAMINATION: Appears comfortable. No apparent distress. VITAL SIGNS: Vital signs are stable. Blood pressure 135/80, pulse rate 68, temperature 98.3. HEENT examination unremarkable. Conjunctivae pink. Sclerae anicteric. Oral cavity no lesions. NECK: No JVD or lymph node enlargement. CHEST: Clear to auscultation. HEART: Regular rate and rhythm. ABDOMEN: Soft. Bowel sounds are positive. No organomegaly. EXTREMITIES: No pedal edema. SKIN: No rashes. NEUROLOGIC: Alert MMODL / IJN: [id number] /
--- NOTE | 2019-05-08 15:19 | PN ---
PROGRESS NOTE DATE OF SERVICE: 05/08/2019. REASON FOR FOLLOWUP: E. coli bacteremia colitis. INTERVAL HISTORY: The patient is currently afebrile, has been breathing comfortably. Patient denies chest pain or shortness of breath or cough. Abdominal pain has improved. Denies any further diarrhea. PHYSICAL EXAMINATION: Blood pressure 157/83 with a pulse of 81, temperature 98.3. He is on 99% on room air. General description is a middle-aged male up in the bed in no distress. Respiratory system: Unlabored breathing, clear to auscultation anteriorly. Heart: S1, S2. Regular rate and rhythm. Abdomen soft, no tenderness. LABS: BUN of 7, creatinine 0.6. IMPRESSION/PLAN: Patient with E coli bacteremia ( ) colitis. Antibiotic on discharge will be Flagyl and Cipro for 10 days. Prescription is in the pharmacy. Continue supportive care. MMODL / ANITAN: [id number] /
--- NOTE | 2019-05-08 19:53 | P.DS ---
Providers Date of admission: 05/05/19 13:22 Expected date of discharge: 05/08/19 Attending physician: Genaro Schmidt Consults: 05/05/19 13:22 Consult Physician Urgent Consulting Provider: Sherlyn Murillo Consult Reason/Comments: Colitis, GI hemorrhage, elevated liver enzymes Do you want consulting provider notified?: Yes 05/06/19 05:55 Consult Physician Routine Consulting Provider: Alice Riojas Consult Reason/Comments: positive Blood culture Do you want consulting provider notified?: Yes Primary care physician: [facility] Course: Presenting complaint: Diarrhea Interval history: Patient admitted with 5 days' duration of diarrhea. No blood. [place] to be infectious diarrhea. Negative for C. diff. Treated empirically with antibiotics. Including ceftriaxone and Flagyl. E. coli bacteremia. Today-doing much better. No abdominal pain. That has been addressed. Up and about. Care was discussed with the patient. Doing much better. Very keen to go home. Antibiotics per Dr. Briones. Consultation: Dr. Guidry from ID Dr. Sukhdeep Murillo from GI On examination: VITAL SIGNS: 98.3, 81, 16, 157/83, 99% on room air GENERAL APPEARANCE: Sitting up, comfortable HEENT: Normal external appearance of nose and ear. Oral cavity normal, decreased hearing chronic EYES: Pupils equal. Conjunctiva normal. NECK: JVD not raised. Mass not palpable. RESPIRATORY: Respiratory effort normal. Lungs clear to auscultation. CARDIOVASCULAR: First and second sounds normal. No edema. ABDOMEN: Soft. Non-tender, no guarding or rigidity Liver and spleen not palpable.. PSYCHIATRY: Alert and oriented x3. Mood and affect normal. . INVESTIGATIONS, reviewed in the clinical context: Potassium 3.4 creatinine 0.64 Previous testing White count 5.9 hemoglobin 13.3 platelets 120 potassium 3.1 creatinine 0.62 Total bilirubin 1.1 AST 18 ALT 85 Acute hepatitis screen-negative C. diff negative Assessment: -Acute infectious colitis with E. coli bacteremia c -Acute infectious hepatitis self-limiting coming down -Chronic tinnitus -Thrombocytopenia could be from acute infection -Hyponatremia likely hypoosmolar -Hypokalemia from diarrhea -Mild thrombocytopenia likely from acute infection Disposition: Home Patient Condition at Discharge: Stable Plan - Discharge Summary New Discharge Prescriptions: New Loratadine-Pseudoeph 5-120 mg [Claritin-D 12 Hour] 1 each PO Q12HR #10 tab.er.12h Ciprofloxacin HCl [Cipro] 500 mg PO Q12H 10 Days #20 tab metroNIDAZOLE [Flagyl] 500 mg PO TID #30 tab Discharge Medication List Ciprofloxacin HCl [Cipro] 500 mg PO Q12H 10 Days #20 tab 05/08/19 [Rx] Loratadine-Pseudoeph 5-120 mg [Claritin-D 12 Hour] 1 each PO Q12HR #10 tab.er.12h 05/08/19 [Rx] metroNIDAZOLE [Flagyl] 500 mg PO TID #30 tab 05/08/19 [Rx] Follow up Appointment(s)/Referral(s): Sherlyn Murillo MD [STAFF PHYSICIAN] - 05/21/19 1:45 pm (Will need a 'global' from PCP) Anish Melton DO [Primary Care Provider] - 3 Days (Please have 'Global' sent to GI office Office closed for lunch. Please call to make appointment) Patient Instructions/Handouts: Colitis (ED) Activity/Diet/Wound Care/Special Instructions: activity as tolerated low fiber diet as tolerated Discharge Disposition: HOME SELF-CARE
--- NOTE | 2019-05-11 12:09 | CDI ---
Documentation Clarification Form Date: 05/11/19 From: Olga Sanches Phone: If you have a question about this query, please contact Fina Johnson, Registration Rep at [phone] between 8am and 5pm. Admit Date: 05/05/19 Discharge Date: 05/08/19 Patient Name: Wilber Hernandez Visit Number: [id number] ATTENTION: The Clinical Documentation Specialists (CDI) and [facility] Coding Staff appreciate your assistance in clarifying documentation. Please respond to the clarification below the line at the bottom and electronically sign. The CDI & [facility] Coding staff will review the response and follow-up if needed. Please note: Queries are made part of the Legal Health Record. If you have any questions, please contact the author of this message via ITS. Dear Dr. Genaro Schmidt, Conflicting documentation has been found in the medical record: Sepsis was documented by ED, H&P and ID consult History/Risk Factors: infectious colitis, hyponatremia, hypokalemia, dehydration Clinical Indicators: Fever -100.4/102.3, tachycardia - 139, BP - 101/68, lactic acid 1.8, Total bilirubin 1.7, WBC-7.4, neutrophils-6.8, Blood culture - E coli Treatment: IV Levaquin, IV Flagyl, IV Rocephin, fluids, discharged home on Cipr 500 mg po Q12H for 10 days and Flagyl 500 mg po TID In your opinion, what is the most clinically appropriate diagnosis for this patient? Bacteremia Sepsis Sepsis ruled out Other explanation of clinical findings Unable to determine (no explanation for clinical findings) sepsis MTDD
== END 2019-05-08 14:14 | disposition home or self-care (01) | DRG 872 ==
LOC: EC 10:19 → 6NMEDSUR 13:22
PROVIDERS: ADMIT Hospitalist; ATTEND Hospitalist
DX: A41.51 Sepsis due to Escherichia coli [E. coli] (principal); A09 Infectious gastroenteritis and colitis, unspecified; E87.1 Hypo-osmolality and hyponatremia; B17.9 Acute viral hepatitis, unspecified; D69.59 Other secondary thrombocytopenia; E87.6 Hypokalemia; E86.0 Dehydration; N20.0 Calculus of kidney; H93.19 Tinnitus, unspecified ear; Z98.890 Other specified postprocedural states; Z91.040 Latex allergy status; Z91.018 Allergy to other foods; Z80.3 Family history of malignant neoplasm of breast; Z83.1 Family history of other infectious and parasitic diseases
CPT/HCPCS: 36415; 71046; 74177; 80048; 80053; 80074; 81001; 82272; 83605; 84132; 85025; 85027; 85610; 85730; 87040; 87045; 87046; 87077; 87186; 87324; 87502; 93005; 94760; 96361; 96365; 96375; 99285

== ENCOUNTER → 2019-05-21 | Outpatient (CLI) | payer BC ==
[2019-05-21 16:19] LABS: Basophils % (A) 1 %; Eosinophils # (A) 0.1 k/uL (0-0.7); Eosinophils % (A) 1 %; HCT 44.8 % (39.0-53.0); HGB 14.1 gm/dL (13.0-17.5); Lymphocytes % (A) 23 %; MCHC 31.4 g/dL (31.0-37.0); Mean Platelet Volume 7.2; Monocytes # (A) 0.6 k/uL (0-1.0); Monocytes % (A) 7 %; Neutrophils # (A) 5.7 k/uL (1.3-7.7); Neutrophils % (A) 67 %; RBC 4.86 m/uL (4.30-5.90); RDW 12.9 % (11.5-15.5); WBC 8.6 k/uL (3.8-10.6)
[2019-05-21 16:21] LABS: MCV 92.2 fL (80.0-100.0); Platelet Count 692 k/uL (150-450)
[2019-05-21 16:31] LABS: ALT 115 U/L (4-49); AST 38 U/L (17-59); African American GFR (CKD) >90 (>60 ml/min/1.73 sqM); Albumin 4.4 g/dL (3.5-5.0); Alkaline Phosphatase 173 U/L (38-126); Anion Gap 10 mmol/L; Blood Urea Nitrogen 11 mg/dL (9-20); Carbon Dioxide 31 mmol/L (22-30); Chloride 92 mmol/L (98-107); Glucose 103 mg/dL (74-99); Non-African American GFR(CKD) >90 (>60 ml/min/1.73 sqM); Potassium 4.3 mmol/L (3.5-5.1); Sodium 133 mmol/L (137-145); Total Bilirubin 0.5 mg/dL (0.2-1.3); Total Protein 7.6 g/dL (6.3-8.2)
--- NOTE | 2019-05-21 18:26 | CT ---
EXAMINATION TYPE: CT abdomen pelvis w con DATE OF EXAM: 05/21/2019 COMPARISON: 05/05/2019 HISTORY: LLQ pain, colitis, r/o abscess. CT DLP: 640.50 mGycm Automated exposure control for dose reduction was used. TECHNIQUE: Helical acquisition of images was performed from the lung bases through the pelvis. CONTRAST: Performed with Oral Contrast and with IV Contrast, patient injected with 100 mL of Isovue 3 00. FINDINGS: LUNG BASES: No acute findings. AORTA/CAVA: Unremarkable LIVER/GB: Unremarkable PANCREAS: No significant abnormality is seen. SPLEEN: No significant abnormality is seen. ADRENALS: No significant abnormality is seen. KIDNEYS: Nonobstructive calculus present at the lower pole left kidney, subcentimeter cortical cyst p resent in the midpole laterally. REPRODUCTIVE ORGANS: Prostate is enlarged and shows associated calcification. BOWEL: The distal descending colon shows mural thickening and a 3 x 2 x 2 cm extraluminal gas focus a t the mesencolonic medial margin of the descending colon, centered on axial image 55 of series 3. The findings consistent with extraluminal mesenteric contained perforation, isolated to the mesocolon ad jacent to the descending colon. There are no other gas collections. There is no pneumatosis, and ther e is no pneumoperitoneum. PERITONEAL CAVITY: No pneumoperitoneum. No fluid. ABDOMINAL PELVIC ADENOPATHY: None visualized. URINARY BLADDER: Mild/moderate urinary bladder distention. OSSEOUS STRUCTURES: No acute findings. IMPRESSION: DISTAL DESCENDING COLON DIVERTICULITIS, WITH SMALL CONTAINED PERFORATION LIMITED TO THE PERICOLONIC M ESOCOLON.
== END | disposition home or self-care (01) ==
LOC: RADCTMAIN 15:18
PROVIDERS: ATTEND Nurse Practitioner
DX: K57.20 Diverticulitis of large intestine with perforation and abscess without bleeding (principal); R74.8 Abnormal levels of other serum enzymes; A41.50 Gram-negative sepsis, unspecified
CPT/HCPCS: 80053; 85025; 87040; 74177; Q9967

== ENCOUNTER 2019-05-22 09:16 | Observation (INO) | payer BC ==
[2019-05-22] MEDS ORDERED: SODIUM CHLORIDE 0.9% 1,000 ML IV STA ×2 (09:46)
[2019-05-22] MEDS ORDERED: ONDANSETRON 4 MG/2 ML VIAL IVP STA (09:46)
[2019-05-22] MEDS ORDERED: PANTOPRAZOLE 40 MG/10 ML VIAL IVP STA (09:46)
[2019-05-22] MEDS ORDERED: MORPHINE SULFATE 4 MG/ML SYRINGE IV STA (09:46)
--- NOTE | 2019-05-22 09:49 | ED ---
Abdominal Pain HPI - General Source: patient, RN notes reviewed, old records reviewed Mode of arrival: ambulatory Limitations: no limitations <Jaqueline Bernard - Last Filed: 05/22/19 11:32> <Swetha Drummond - Last Filed: 05/27/19 14:48> - General Chief Complaint: Abdominal Pain Stated Complaint: Infection Time Seen by Provider: 05/22/19 09:28 - History of Present Illness Initial Comments: Patient is a 63-year-old male who presents emergency department today with worsening abdominal pain, general malaise poor appetite. Patient was sent in by primary care doctor after he had an outpatient computed tomography scan yesterday. Computed tomography scan yesterday shows evidence of diverticulitis with localized perforation. Patient reports that he's had vomiting, and significant tenderness with movement of his abdomen. Patient was recently admitted for colitis and transaminitis. He was discharged at that time on Flagyl. He is finish his antibiotics. He states that he last had a bowel movement 2 days ago. He had one sip of Gatorade this morning. (Jaqueline Bernard) - Related Data Home Medications Medication Instructions Recorded Confirmed Acetaminophen Tab [Tylenol] 1,000 mg PO Q6HR PRN 05/22/19 05/22/19 Previous Rx's Medication Instructions Recorded Amoxicillin/Potassium Clav 1 tab PO Q12HR #28 tab 05/24/19 [Augmentin 875-125 Tablet] metroNIDAZOLE [Flagyl] 500 mg PO Q6H #56 tab 05/24/19 Allergies Allergy/AdvReac Type Severity Reaction Status Date / Time gluten AdvReac congested Verified 05/22/19 11:01 latex AdvReac congested Verified 05/22/19 11:01 Review of Systems ROS Other: All systems not noted in ROS Statement are negative. <Jaqueline Bernard - Last Filed: 05/22/19 11:32> ROS Other: All systems not noted in ROS Statement are negative. <Swetha Drummond - Last Filed: 05/27/19 14:48> ROS Statement: Those systems with pertinent positive or pertinent negative responses have been documented in the HPI. Past Medical History Additional Past Medical History / Comment(s): tinnitis, [place] History of Any Multi-Drug Resistant Organisms: None Reported Past Surgical History: Orthopedic Surgery Additional Past Surgical History / Comment(s): arthroscopy knee,colonoscopy Past Anesthesia/Blood Transfusion Reactions: No Reported Reaction Smoking Status: Never smoker Past Alcohol Use History: None Reported Past Drug Use History: None Reported - Past Family History Mother Family Medical History: Cancer Additional Family Medical History / Comment(s): breast Father Family Medical History: Liver Disease <LisaJaqueline gómez - Last Filed: 05/22/19 11:32> General Exam Limitations: no limitations General appearance: alert, in no apparent distress Head exam: Present: atraumatic, normocephalic, normal inspection Eye exam: Present: normal appearance, PERRL, EOMI. Absent: scleral icterus, conjunctival injection, periorbital swelling ENT exam: Present: normal exam Neck exam: Present: normal inspection. Absent: tenderness, meningismus, lymphadenopathy Respiratory exam: Present: normal lung sounds bilaterally. Absent: respiratory distress, wheezes, rales, rhonchi, stridor Cardiovascular Exam: Present: regular rate, normal rhythm, normal heart sounds. Absent: systolic murmur, diastolic murmur, rubs, gallop, clicks GI/Abdominal exam: Present: soft, tenderness (LLQ tenderness, no significant rebound or guarding at this time), normal bowel sounds. Absent: distended, guarding, rebound, rigid Extremities exam: Present: normal inspection, full ROM, normal capillary refill. Absent: tenderness, pedal edema, joint swelling, calf tenderness Back exam: Present: normal inspection Neurological exam: Present: alert, oriented X3, CN II-XII intact Psychiatric exam: Present: normal affect, normal mood Skin exam: Present: warm, dry, intact, normal color. Absent: rash <JoanaJaqueline - Last Filed: 05/22/19 11:32> - General Exam Comments Initial Comments: This is a 63-year-old male. (Jaqueline Bernard) Course Vital Signs 05/22/19 09:21 Temperature 97.7 F Pulse Rate 86 Respiratory 16 Rate Blood Pressure 137/97 O2 Sat by Pulse 99 Oximetry Medical Decision Making - Lab Data Result diagrams: 05/22/19 10:15 05/22/19 10:15 - Radiology Data Radiology results: report reviewed <JoanaJaqueline - Last Filed: 05/22/19 11:32> - Lab Data Result diagrams: 05/24/19 12:54 05/22/19 10:15 <Swetha Drummond - Last Filed: 05/27/19 14:48> - Medical Decision Making 63-year-old male presents emergency department today for abnormal computed tomography scan performed yesterday. CT showed evidence of diverticulitis with contained perforation. Patient was treated with Flagyl recently for colitis. He extended hospital stay at that time was seen by Dr. Thomas. At this time patient's does have some left lower quadrant tenderness but no significant guarding or rigidity at this time. Patient's vital signs are stable. Blood cell count is within normal limits at 6.2. Chemistry panel is relatively unremarkable. We did obtain blood cultures. Patient was started on Zosyn. Discussed the case with Dr. Drummond who discussed the case with Dr. Dobson who requested consult in regards to patient's CT findings. Patient will be admitted to Dr. Schmidt. (Jaqueline Bernard) I was available for consultation in the emergency department. The history and physical exam were done by the midlevel provider. I was consulted for this patients care. I reviewed the case with the midlevel provider and based on their presentation of the patient, I agree with the assessment, medical decision making and plan of care as documented. I discussed the case with Dr. Schmidt and Dr. Dobson. I will also place GI on consult. I evaluated the patient myself and he agreed to the treatment plan. Chart was dictated using [employer] dictation software. Attempts were made to correct any dictation errors however some typographical errors may persist. (Swetha Drummond) - Lab Data Lab Results 05/22/19 05/22/19 05/22/19 Range/Units 10:15 10:15 10:15 WBC 6.1 (3.8-10.6) k/uL RBC 4.81 (4.30-5.90) m/uL Hgb 14.1 (13.0-17.5) gm/dL Hct 43.2 (39.0-53.0) % MCV 89.9 (80.0-100.0) fL MCH 29.4 (25.0-35.0) pg MCHC 32.7 (31.0-37.0) g/dL RDW 12.8 (11.5-15.5) % Plt Count 673 H (150-450) k/uL Neutrophils % 65 % Lymphocytes % 23 % Monocytes % 7 % Eosinophils % 3 % Basophils % 1 % Neutrophils # 4.0 (1.3-7.7) k/uL Lymphocytes # 1.4 (1.0-4.8) k/uL Monocytes # 0.4 (0-1.0) k/uL Eosinophils # 0.2 (0-0.7) k/uL Basophils # 0.1 (0-0.2) k/uL PT 10.2 (9.0-12.0) sec INR 1.0 (<1.2) APTT 29.3 (22.0-30.0) sec Sodium 134 L (137-145) mmol/L Potassium 3.7 (3.5-5.1) mmol/L Chloride 94 L (98-107) mmol/L Carbon Dioxide 31 H (22-30) mmol/L Anion Gap 9 mmol/L BUN 8 L (9-20) mg/dL Creatinine 0.89 (0.66-1.25) mg/dL Est GFR (CKD-EPI)AfAm >90 (>60 ml/min/1.73 sqM) Est GFR (CKD-EPI)NonAf >90 (>60 ml/min/1.73 sqM) Glucose 104 H (74-99) mg/dL Plasma Lactic Acid Zechariah (0.7-2.0) mmol/L Calcium 9.5 (8.4-10.2) mg/dL Total Bilirubin 0.7 (0.2-1.3) mg/dL AST 32 (17-59) U/L ALT 82 H (4-49) U/L Alkaline Phosphatase 144 H (38-126) U/L Total Protein 7.1 (6.3-8.2) g/dL Albumin 4.0 (3.5-5.0) g/dL Amylase 67 (30-110) U/L Lipase 139 (23-300) U/L 05/22/19 Range/Units 10:15 WBC (3.8-10.6) k/uL RBC (4.30-5.90) m/uL Hgb (13.0-17.5) gm/dL Hct (39.0-53.0) % MCV (80.0-100.0) fL MCH (25.0-35.0) pg MCHC (31.0-37.0) g/dL RDW (11.5-15.5) % Plt Count (150-450) k/uL Neutrophils % % Lymphocytes % % Monocytes % % Eosinophils % % Basophils % % Neutrophils # (1.3-7.7) k/uL Lymphocytes # (1.0-4.8) k/uL Monocytes # (0-1.0) k/uL Eosinophils # (0-0.7) k/uL Basophils # (0-0.2) k/uL PT (9.0-12.0) sec INR (<1.2) APTT (22.0-30.0) sec Sodium (137-145) mmol/L Potassium (3.5-5.1) mmol/L Chloride (98-107) mmol/L Carbon Dioxide (22-30) mmol/L Anion Gap mmol/L BUN (9-20) mg/dL Creatinine (0.66-1.25) mg/dL Est GFR (CKD-EPI)AfAm (>60 ml/min/1.73 sqM) Est GFR (CKD-EPI)NonAf (>60 ml/min/1.73 sqM) Glucose (74-99) mg/dL Plasma Lactic Acid Zechariah 1.1 (0.7-2.0) mmol/L Calcium (8.4-10.2) mg/dL Total Bilirubin (0.2-1.3) mg/dL AST (17-59) U/L ALT (4-49) U/L Alkaline Phosphatase (38-126) U/L Total Protein (6.3-8.2) g/dL Albumin (3.5-5.0) g/dL Amylase (30-110) U/L Lipase (23-300) U/L - Radiology Data Interpreted by me: Distal descending colonic diverticulitis with small contained perforation limited to. Colonic mesocolon. (Jaqueline Bernard) KUB shows not instructed bowel gas pattern. Residual contrast is seen within the nondilated colon. Patient is Diverticulitis on the CT at 05/20/2016 on x- ray. No pneumoperitoneum. (Jaqueline Bernard) Disposition Is patient prescribed a controlled substance at d/c from ED?: No Time of Disposition: 11:34 <Jaqueline Bernard - Last Filed: 05/22/19 11:32> <Swetha Drummond - Last Filed: 05/27/19 14:48> Clinical Impression: Diverticulitis, Perforation bowel Disposition: ADMITTED IP TO THIS HOSP Condition: Stable
[2019-05-22] MEDS ORDERED: PIPERACILLIN-TAZOBACTAM 3.375 GM in SODIUM CHLORIDE 0.9% 100 ML IVPB STA (09:53)
[2019-05-22 10:28] LABS: Basophils # (A) 0.1 k/uL (0-0.2); Basophils % (A) 1 %; Eosinophils # (A) 0.2 k/uL (0-0.7); Eosinophils % (A) 3 %; HCT 43.2 % (39.0-53.0); HGB 14.1 gm/dL (13.0-17.5); Lymphocytes # (A) 1.4 k/uL (1.0-4.8); Lymphocytes % (A) 23 %; MCH 29.4 pg (25.0-35.0); MCHC 32.7 g/dL (31.0-37.0); MCV 89.9 fL (80.0-100.0); Monocytes # (A) 0.4 k/uL (0-1.0); Monocytes % (A) 7 %; Neutrophils % (A) 65 %; Platelet Count 673 k/uL (150-450); RBC 4.81 m/uL (4.30-5.90); RDW 12.8 % (11.5-15.5); WBC 6.1 k/uL (3.8-10.6)
[2019-05-22 10:37] LABS: Partial Thromboplastin Time 29.3 sec (22.0-30.0); Prothrombin Time 10.2 sec (9.0-12.0)
[2019-05-22 10:39] LABS: ALT 82 U/L (4-49); AST 32 U/L (17-59); African American GFR (CKD) >90 (>60 ml/min/1.73 sqM); Alkaline Phosphatase 144 U/L (38-126); Amylase 67 U/L (30-110); Anion Gap 9 mmol/L; Blood Urea Nitrogen 8 mg/dL (9-20); Calcium 9.5 mg/dL (8.4-10.2); Carbon Dioxide 31 mmol/L (22-30); Chloride 94 mmol/L (98-107); Glucose 104 mg/dL (74-99); Non-African American GFR(CKD) >90 (>60 ml/min/1.73 sqM); Potassium 3.7 mmol/L (3.5-5.1); Sodium 134 mmol/L (137-145); Total Bilirubin 0.7 mg/dL (0.2-1.3); Total Protein 7.1 g/dL (6.3-8.2)
--- NOTE | 2019-05-22 11:02 | XR ---
EXAMINATION TYPE: XR KUB DATE OF EXAM: 05/22/2019 10:48 AM CLINICAL HISTORY: Left lower abdominal pain TECHNIQUE: Single upright image of the abdomen is obtained. COMPARISON: CT abdomen pelvis dated 05/21/2015. FINDINGS: No dilated large or small bowel. Lung bases are well aerated. Oral contrast is seen through out portions of the colon from the recent CT. This partially screws abdomen however no gross evidence of abnormal calcification is seen. Mild degenerative changes of the hips. No pneumoperitoneum. IMPRESSION: Nonobstructive bowel gas pattern. Residual contrast is seen within the nondilated colon. Patient's known diverticulitis on the CT of 05/21/2019 is not seen on x-ray. No pneumoperitoneum.
[2019-05-22] MEDS ORDERED: NALOXONE 0.4 MG/ML 1 ML VIAL IV PRN (11:34)
[2019-05-22] MEDS ORDERED: ONDANSETRON 4 MG/2 ML VIAL IVP PRN (11:34)
[2019-05-22] MEDS ORDERED: metroNIDAZOLE-NS PMX 500 MG in SALINE 1 100ML.BAG IVPB STA (11:46)
[2019-05-22] MEDS: SODIUM CHLORIDE 0.9% 1,000 ML IV SCH ×3 (13:00→23:52)
[2019-05-22] MEDS: MORPHINE SULFATE 4 MG/ML SYRINGE IV PRN ×2 (15:17→20:41)
[2019-05-22] MEDS: metroNIDAZOLE-NS PMX 500 MG in SALINE 1 100ML.BAG IVPB SCH ×2 (17:41→23:48)
[2019-05-22] MEDS: KETOROLAC 30 MG/ML 1 ML VIAL IVP PRN ×2 (17:44→23:57)
--- NOTE | 2019-05-22 18:02 | P.GSCN ---
History of Present Illness Consult date: 05/22/19 History of present illness: CHIEF COMPLAINT: Perforated diverticulitis HISTORY OF PRESENT ILLNESS: The patient is a 63 year old male with recent admission in the last 30 days secondary to similar left lower quadrant abdominal pain. He reports the pain as sharp and crampy in nature and has been ongoing for several weeks. He also reports separate right upper quadrant abdominal pain. Patient had recent colonoscopy within the last 5 years, 2016 remarkable for adenomas of the rectum and diverticulosis. secondary to the severity of his pain, presented to the emergency room. No reports of fevers or chills. CT of the abdomen and pelvis confirmed contained perforation of diverticulitis, hence general surgery consultation. PAST MEDICAL HISTORY: See list. PAST SURGICAL HISTORY: See list. MEDICATIONS: See list. ALLERGIES: See list. SOCIAL HISTORY: See list. FAMILY HISTORY: See list. REVIEW OF ORGAN SYSTEMS: CONSTITUTIONAL: No fevers or chills. EYES: Denies any trouble with vision. No glasses. HEENT: Has difficulties with hearing. No nosebleeds. No difficulty swallowing. RESPIRATORY: Denies pneumonia. Denies any troubles with breathing or dyspnea on exertion. CARDIOVASCULAR: Denies any chest pain, palpitations, or recent heart attacks. GASTROINTESTINAL: Denies fatty food intolerance. Has change in bowel habits and gas bloat. GENITOURINARY: Denies any blood in urine or increased urinary frequency. NEUROLOGICAL: Denies any numbness or tingling along the distal extremities. No seizure disorders or headaches. MUSCULOSKELETAL: Denies any back pain, stiffness or joint arthritis. SKIN: No current skin cancer. No rash. PSYCHIATRIC: Denies current depression or suicidal thoughts. ENDOCRINE: Denies current thyroid disorders. Denies any blood sugar glucose intolerance. HEME/LYMPHATIC: Denies any lumps and bumps around the neck. No recent deep venous thrombosis. ALLERGY/IMMUNOLOGY: No immunoglobulin therapy. No immune deficiencies. BREAST: Denies current breast lumps, pain or nipple discharge. PHYSICAL EXAM: VITALS: Reviewed CONSTITUTIONAL: Well developed and in no acute distress. EYES: Conjuctivae without sclera icterus. Pupils are equally round and reactive to light. Extraocular movements grossly intact. HEAD, EARS, NOSE, THROAT: Moist buccal mucosa. Head is atraumatic, normocephalic. Heart appearing to conversational speech. No nasal drainage. NECK: Supple. No JV distention. No thyroidomegaly. RESPIRATORY: Non-labored respirations and equal bilateral excursions. No gross wheezes. CARDIOVASCULAR: Regular rate and rhythm. Extremities without moderate edema. Palpable 2+ radial pulses. ABDOMEN: Soft. Mild tenderness left lower quadrant. No diffuse peritonitis. Nondistended. LYMPH: No neck lymphadenopathy. No axillary lymphadenopathy. MUSCULOSKELETAL: Nail and fingers with good capillary refill. SKIN: Warm and well perfused with good skin turgor. NEUROLOGIC: Cranial nerves I through XII grossly intact. Sensation upper and extremities intact. No focal or lateralizing signs. PSYCH: Appropriate affect. Alert and oriented to person, place and time. Displays appropriate insight. CLINCAL LABS: Reviewed. WBC normal 6.1. LFTs elevated IMAGING: CT of the abdomen and pelvis independently reviewed demonstrating a localized perforation at the sigmoid colon left lower quadrant. No free air or peritonitis noted. Previous CT of the abdomen and pelvis 3 weeks ago also revie w demonstrated only localize colitis at the area of concern. On computed tomography scan gallbladder moderately distended. RADIOLOGY: Report reviewedAlso confirms perforation into the mesocolon of d escending sigmoid colon RECORDS: previous old records reviewed from colonoscopy in 2016 demonstrated 1 cm distal rectal colon polyp resected. Pathology confirmed fragments of adenoma ASSESSMENT: 1. Abnormal computed tomography scan with contained perforated diverticulitis 2. Left lower quadrant abdominal pain 3. Right upper quadrant abdominal pain 4. Elevated LFTs PLAN: 1. May start ice chips popsicles. No surgical intervention in this time. 2. Recommend ultrasound of the abdomen for persistently elevated LFTs. 3. On computed tomography scan, his gallbladder is moderately distended with elevated LFTs. Again we'll proceed with ultrasound of the abdomen. 4. Recommend bowel rest at least for 24-48 hours until pain improves. 5. Recommend IV antibiotics. Thank you for this kind consultation. Past Medical History Additional Past Medical History / Comment(s): Pt recently admitted to [facility] on 05/05/19 with acute infectious colitis with E coli bacteremia, acute infectious hepatitis, thrombocytopenia possibly d/t acute infection, hyponatremia, hypokalemia. Other hx: Benign colon polyp, chronic bilateral tinnitis, [place] bilaterally with L ear worse, sinus headaches, intermittent diplopia-pt states no cause found, first time GERD yesterday 05/21/19, possible past kidney stone which pt may have passed, R shoulder dislocation. History of Any Multi-Drug Resistant Organisms: None Reported Past Surgical History: Hernia Repair, Orthopedic Surgery Additional Past Surgical History / Comment(s): Bilateral knee arthroscopic surgery, colonoscopy in 2016 with benign polyp, R inguinal hernia repair. Past Anesthesia/Blood Transfusion Reactions: No Reported Reaction Smoking Status: Never smoker - Past Family History Mother Family Medical History: Cancer Additional Family Medical History / Comment(s): Mother from breast cancer at the ageo9f 74 yrs. Father Family Medical History: Liver Disease Additional Family Medical History / Comment(s): Father had hx ETOH Medications and Allergies Home Medications Medication Instructions Recorded Confirmed Type Acetaminophen Tab [Tylenol Tab] 1,000 mg PO Q6HR PRN 05/22/19 05/22/19 History Allergies Allergy/AdvReac Type Severity Reaction Status Date / Time gluten AdvReac congested Verified 05/22/19 11:01 latex AdvReac congested Verified 05/22/19 11:01 Surgical - Exam Vital Signs Temp Pulse Resp BP Pulse Ox 97.7 F 86 16 137/97 99 05/22/19 09:21 05/22/19 09:21 05/22/19 09:21 05/22/19 09:21 05/22/19 09:21 Results - Labs 05/22/19 10:15 05/22/19 10:15 Abnormal Lab Results - Last 24 Hours (Table) 05/22/19 05/22/19 Range/Units 10:15 10:15 Plt Count 673 H (150-450) k/uL Sodium 134 L (137-145) mmol/L Chloride 94 L (98-107) mmol/L Carbon Dioxide 31 H (22-30) mmol/L BUN 8 L (9-20) mg/dL Glucose 104 H (74-99) mg/dL ALT 82 H (4-49) U/L Alkaline Phosphatase 144 H (38-126) U/L Diabetes panel 05/22/19 Range/Units 10:15 Sodium 134 L (137-145) mmol/L Potassium 3.7 (3.5-5.1) mmol/L Chloride 94 L (98-107) mmol/L Carbon Dioxide 31 H (22-30) mmol/L BUN 8 L (9-20) mg/dL Creatinine 0.89 (0.66-1.25) mg/dL Glucose 104 H (74-99) mg/dL Calcium 9.5 (8.4-10.2) mg/dL AST 32 (17-59) U/L ALT 82 H (4-49) U/L Alkaline Phosphatase 144 H (38-126) U/L Total Protein 7.1 (6.3-8.2) g/dL Albumin 4.0 (3.5-5.0) g/dL Calcium panel 05/22/19 Range/Units 10:15 Calcium 9.5 (8.4-10.2) mg/dL Albumin 4.0 (3.5-5.0) g/dL Pituitary panel 05/22/19 Range/Units 10:15 Sodium 134 L (137-145) mmol/L Potassium 3.7 (3.5-5.1) mmol/L Chloride 94 L (98-107) mmol/L Carbon Dioxide 31 H (22-30) mmol/L BUN 8 L (9-20) mg/dL Creatinine 0.89 (0.66-1.25) mg/dL Glucose 104 H (74-99) mg/dL Calcium 9.5 (8.4-10.2) mg/dL Adrenal panel 05/22/19 Range/Units 10:15 Sodium 134 L (137-145) mmol/L Potassium 3.7 (3.5-5.1) mmol/L Chloride 94 L (98-107) mmol/L Carbon Dioxide 31 H (22-30) mmol/L BUN 8 L (9-20) mg/dL Creatinine 0.89 (0.66-1.25) mg/dL Glucose 104 H (74-99) mg/dL Calcium 9.5 (8.4-10.2) mg/dL Total Bilirubin 0.7 (0.2-1.3) mg/dL AST 32 (17-59) U/L ALT 82 H (4-49) U/L Alkaline Phosphatase 144 H (38-126) U/L Total Protein 7.1 (6.3-8.2) g/dL Albumin 4.0 (3.5-5.0) g/dL Assessment and Plan (1) Diverticulitis of colon with perforation Current Visit: Yes Status: Acute Code(s): K57.20 - DVTRCLI OF LG INT W PERFORATION AND ABSCESS W/O BLEEDING SNOMED Code(s): 07164030 (2) Elevated LFTs Current Visit: Yes Status: Acute Code(s): R94.5 - ABNORMAL RESULTS OF LIVER FUNCTION STUDIES SNOMED Code(s): 887734446
[2019-05-22] MEDS: LORATADINE-PSEUDOEPH 5-120 MG 1 EACH TAB.ER.12H PO SCH (18:37)
[2019-05-22] MEDS: PIPERACILLIN-TAZOBACTAM 3.375 GM in SODIUM CHLORIDE 0.9% 100 ML IVPB SCH (18:39)
--- NOTE | 2019-05-22 22:18 | P.HPIM ---
History of Present Illness H&P Date: 05/22/19 Chief Complaint: Abdominal pain History of presenting complaint: This is a very pleasant 63-year-old patient of Dr. Maria E Melton. Patient was recently in the hospital from May 05 through May 08. Computed tomography scan on that admission was suggestive of colitis. Patient did receive ceftriaxone and Flagyl. Patient also was positive for E. coli bacteremia. On the day of discharge with no further abdominal pain. Did much better. Patient was discharged on ciprofloxacin and Flagyl. Patient states that when he went home his symptoms started to come back. As he does not like hospitals in the report to come back. Started having gradually worsening a bdominal pain. Also is having some chills. Occasional nausea. He did take his 10 day course of antibiotic. As symptoms became much worse and decided to come in. Patient was seen by GI and ID in the last admission. Patient had an outpatient computed tomography scan done yesterday that did show ascending colon diverticular disease with a small contained perforation. Patient started on IV Zosyn size and the ER and admitted for the same. Started on IV fluids. Review of systems: GEN.: Tired chills. Decreased appetite EYES: None HEENT: Hard of hearing NECK: None RESPIRATORY: None CARDIOVASCULAR: None GASTROINTESTINAL: Patient also had some diarrhea intermittently GENITOURINARY: None MUSCULOSKELETAL: None LYMPHATICS: None HEMATOLOGICAL: None PSYCHIATRY: None NEUROLOGICAL: None Past medical history to include: Chronic tinnitus, hard of hearing especially in the left ear, hepatomegaly, hepatic steatosis, left kidney stone Social history: Does not smoke. Alcohol occasionally. Lives alone. 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 EYES: Pupils equal. Conjunctiva normal. HEENT: External appearance of nose and ears normal, oral cavity grossly normal. Hard of hearing NECK: JVD not raised; masses not palpable. HEART: First and second heart sounds are normal; no edema. LUNGS: Respiratory rate normal; clear to auscultation. ABDOMEN: Soft, left lower quadrant tenderness, no guarding rigidity liver spleen not palpable, no masses palpable. PSYCH: Alert and oriented x3; mood and affect normal. NEUROLOGICAL: Cranial nerves grossly intact; no facial asymmetry, power and se nsation grossly intact. LYMPHATICS: No lymph nodes palpable in the axilla and neck INVESTIGATIONS, reviewed in the clinical context: White count 6.1 hemoglobin 14.1 platelets 673 potassium 3.7 creatinine 0.89 AST 32 ALT 82 Computed tomography scan of the abdomen from yesterday-diverticulitis with contained perforation Assessment: -Acute diverticulitis in a patient who recently had colitis and had completed a course of antibiotic now presents with worsening pain and a contained perforation. Patient has no white count no fever. -Colonic diverticulosis -Hepatic steatosis -Left kidney stone asymptomatic -Hard of hearing Plan: General surgery was consulted. Patient is on IV Flagyl and IV Zosyn. IV fluids. Made nothing by mouth. Lovenox for DVT prophylaxis. Care was discussed with the patient questions were answered. Past Medical History Additional Past Medical History / Comment(s): Pt recently admitted to [facility] on 05/05/19 with acute infectious colitis with E coli bacteremia, acute infectious hepatitis, thrombocytopenia possibly d/t acute infection, hyponatremia, hypokalemia. Other hx: Benign colon polyp, chronic bilateral tinnitis, [place] bilaterally with L ear worse, sinus headaches, intermittent diplopia-pt states no cause found, first time GERD yesterday 05/21/19, possible past kidney stone which pt may have passed, R shoulder dislocation. History of Any Multi-Drug Resistant Organisms: None Reported Past Surgical History: Hernia Repair, Orthopedic Surgery Additional Past Surgical History / Comment(s): Bilateral knee arthroscopic surgery, colonoscopy in 2016 with benign polyp, R inguinal hernia repair. Past Anesthesia/Blood Transfusion Reactions: No Reported Reaction Smoking Status: Never smoker - Past Family History Mother Family Medical History: Cancer Additional Family Medical History / Comment(s): Mother from breast cancer at the ageo9f 74 yrs. Father Family Medical History: Liver Disease Additional Family Medical History / Comment(s): Father had hx ETOH Medications and Allergies Home Medications Medication Instructions Recorded Confirmed Type Acetaminophen Tab [Tylenol Tab] 1,000 mg PO Q6HR PRN 05/22/19 05/22/19 History Allergies Allergy/AdvReac Type Severity Reaction Status Date / Time gluten AdvReac congested Verified 05/22/19 11:01 latex AdvReac congested Verified 05/22/19 11:01 Physical Exam Vitals: Vital Signs Temp Pulse Pulse Resp BP BP Pulse Ox 05/22/19 13:33 99.0 F 66 17 151/79 97 05/22/19 13:01 97.7 F 86 16 137/97 99 05/22/19 09:21 97.7 F 86 16 137/97 99 Intake and Output 05/22/19 05/22/19 05/22/19 06:59 14:59 22:59 Intake Total 1000 Balance 1000 Intake: Intake, IV Titration 1000 Amount Sodium Chloride 0.9% 1, 1000 000 ml @ 999 mls/hr IV . Q1H1M STA Rx#:[id number] Other: Voiding Method Toilet Weight 77.111 kg Results CBC & Chem 7: 05/22/19 10:15 05/22/19 10:15 Labs: Abnormal Lab Results - Last 24 Hours (Table) 05/22/19 05/22/19 Range/Units 10:15 10:15 Plt Count 673 H (150-450) k/uL Sodium 134 L (137-145) mmol/L Chloride 94 L (98-107) mmol/L Carbon Dioxide 31 H (22-30) mmol/L BUN 8 L (9-20) mg/dL Glucose 104 H (74-99) mg/dL ALT 82 H (4-49) U/L Alkaline Phosphatase 144 H (38-126) U/L Thrombosis Risk Factor Assmnt - Choose All That Apply Any of the Below Risk Factors Present?: Yes Each Factor Represents 1 point: Hx of IBD Other Risk Factors: Yes Each Risk Factor Represents 2 Points: Age 61-74 years Other congenital or acquired thrombophilia - If yes, enter type in comment: No Thrombosis Risk Factor Assessment Total Risk Factor Score: 3 Thrombosis Risk Factor Assessment Level: Moderate Risk
[2019-05-22] MEDS ORDERED: ENOXAPARIN 40 MG/0.4 ML SYRINGE SQ SCH (22:30)
[2019-05-23] MEDS: PIPERACILLIN-TAZOBACTAM 3.375 GM in SODIUM CHLORIDE 0.9% 100 ML IVPB SCH ×3 (02:46→17:09)
[2019-05-23] MEDS: metroNIDAZOLE-NS PMX 500 MG in SALINE 1 100ML.BAG IVPB SCH ×3 (06:50→21:17)
[2019-05-23] MEDS: KETOROLAC 30 MG/ML 1 ML VIAL IVP PRN (07:26)
[2019-05-23] MEDS: PANTOPRAZOLE 40 MG/10 ML VIAL IV SCH (08:31)
[2019-05-23] MEDS: LORATADINE-PSEUDOEPH 5-120 MG 1 EACH TAB.ER.12H PO SCH ×2 (08:31→20:48)
[2019-05-23 11:53] VITALS: BMI 23.7
--- NOTE | 2019-05-23 13:52 | US ---
EXAMINATION TYPE: US gallbladder DATE OF EXAM: 05/23/2019 COMPARISON: CT 2 days earlier. CLINICAL HISTORY: Right upper quadrant pain. EXAM MEASUREMENTS: Liver Length: 11.1 cm Gallbladder Wall: 0.2 cm CBD: 0.3 cm Right Kidney: 11.6 x 5.8 x 5.8 cm Technically difficult study due to extensive midline bowel gas. Pancreas: visualized portions wnl Liver: wnl Gallbladder: No stones seen Evidence for sonographic Eller's sign: No CBD: wnl Right Kidney: No hydronephrosis or masses seen Visualized pancreas within normal limits. Visualized liver unremarkable. Gallbladder shows no shadowi ng mobile gallstones. IMPRESSION: Slightly suboptimal study without gallstones or ultrasound evidence for acute cholecystit is.
--- NOTE | 2019-05-23 13:58 | P.PN ---
Subjective Progress Note Date: 05/23/19 CHIEF COMPLAINT: Diverticulitis HISTORY OF PRESENT ILLNESS: The patient is a 63-year-old male admitted secondary to perforated diverticulitis and left lower quadrant abdominal pain. He has been nothing by mouth with exception of ice chips and popsicles. His abdominal pain has improved. "I feel so much better. I don't ever want to feel that pain again." ROS: No reports of nausea and vomiting. No fevers or chills. No new chest pain. No productive sputum PHYSICAL EXAM: VITAL SIGNS: Reviewed CONSTITUTIONAL: Well developed and in no acute distress. EYES: Conjuctivae without sclera icterus. Extraocular movements grossly intact. HEAD, EARS, NOSE, THROAT: Moist buccal mucosa. Head is atraumatic, normocephalic. Hears conversational speech. No nasal drainage. NECK: Supple. No thyroidomegaly. RESPIRATORY: Non-labored respirations and equal bilateral excursions. CARDIOVASCULAR: Palpable 2+ radial pulses. Regular rate. Regular rhythm. ABDOMEN: Soft. No peritonitis. Nontender to light palpation MUSCULOSKELETAL: No gross deformity of the lower extremities noted. No clubbing. No cyanosis. SKIN: Good skin turgor. Well perfused. NEUROLOGIC: Cranial nerves I through XII grossly intact. No focal or lateralizing signs. PSYCH: Appropriate affect. Alert and oriented to person, place and time. CLINICAL LABS: White blood cell count normal ASSESSMENT: 1. Localized perforated diverticulitis 2. LFTs were distended gallbladder PLAN: 1. Ultrasound of the gallbladder has been ordered to evaluate for symptomatic gallstones. 2. Start liquid diet. 3. May advance to soft diet for dinner/breakfast. 4. If tolerates, may be discharged home tomorrow. Objective - Vital Signs Vital signs: Vital Signs Temp 98.0 F 05/23/19 07:00 Pulse 60 05/23/19 07:00 Resp 18 05/23/19 07:10 BP 161/92 05/23/19 07:00 Pulse Ox 98 05/23/19 07:00 Intake & Output 05/22/19 05/23/19 05/23/19 18:59 06:59 18:59 Intake Total 1000 500 Balance 1000 500 Weight 77.111 kg 77.111 kg Intake: Intake, IV Titration 1000 500 Amount Sodium Chloride 0.9% 1, 500 000 ml @ 100 mls/hr IV . Q10H [facility] Rx#:[id number] Sodium Chloride 0.9% 1, 1000 000 ml @ 999 mls/hr IV . Q1H1M [facility] Rx#:[id number] Other: Voiding Method Toilet Toilet Toilet # Voids 1 - Labs CBC & Chem 7: 05/22/19 10:15 05/22/19 10:15 Labs: Microbiology - Last 24 Hours (Table) 05/22/19 10:15 Blood Culture - Preliminary Blood No Growth after 24 hours Assessment and Plan (1) Diverticulitis of colon with perforation Current Visit: Yes Status: Acute Code(s): K57.20 - DVTRCLI OF LG INT W PERFORATION AND ABSCESS W/O BLEEDING SNOMED Code(s): 86762172 (2) Elevated LFTs Current Visit: Yes Status: Acute Code(s): R94.5 - ABNORMAL RESULTS OF LIVER FUNCTION STUDIES SNOMED Code(s): 891156436
[2019-05-23] MEDS: SODIUM CHLORIDE 0.9% 1,000 ML IV SCH (14:48)
--- NOTE | 2019-05-23 16:19 | P.CONS ---
History of Present Illness - Reason for Consult Consult date: 05/23/19 Abdominal pain, perforated diverticulosis Requesting physician: Genaro Schmidt - Chief Complaint Abdominal pain - History of Present Illness 63-year-old male with a medical history significant for chronic tinnitus, diverticulosis, prior colon polyps and recent hospitalization for treatment of colitis with gram-negative bacteremia presented back to the hospital due to com plaints of abdominal pain. The patient had been treated with hepatic therapy at that time and discharged home with instructions to complete antibiotic therapy which she did. However the patient had continued to report persistent abdominal pain. Present all the time but worse with movement and when driving in his car. On original admission the patient had been having complaints of loose stool w hich had decreased after discharge however the persisted. He presented back to the hospital where CT was significant for a contained diverticular perforation. Laboratory evaluation significant for a WBC 6.1, hemoglobin 14, platelet count 673,000, amylase 67, lipase 139, total bilirubin 1, alkaline phosphatase 144, AST 32 and ALT 82. Since being admitted to the hospital the patient has tolerated ice chips and popsicles and has been started on broad-spectrum antibiotic therapy with improvement in his symptoms. Review of Systems REVIEW OF SYSTEMS: CONSTITUTIONAL: Denies any fevers, chills, weight change or fatigue. CARDIOVASCULAR: Denies any chest pain, palpitations high or low blood pressures RESPIRATORY: Denies any shortness of breath, hemoptysis or cough. GENITOURINARY: No dysuria or hematuria. MUSCULOSKELETAL: No weakness reported. SKIN: Denies any new rashes or lesions, jaundice or pallor. PSYCHIATRIC: Denies any depression or anxiety. NEUROLOGY: Denies headache, denies any new focal deficits. EARS/NOSE/THROAT: No recent hearing change but the patient does suffer from tinnitus at baseline, congestion, nasal discharge or sore throat. EYES: No pain in eyes, discharge or change in vision. GASTROINTESTINAL: As per HPI. Past Medical History Additional Past Medical History / Comment(s): Pt recently admitted to [facility] on 05/05/19 with acute infectious colitis with E coli bacteremia, acute infectious hepatitis, thrombocytopenia possibly d/t acute infection, hyponatremia, hypokalemia. Other hx: Benign colon polyp, chronic bilateral tinnitis, [place] bilaterally with L ear worse, sinus headaches, intermittent diplopia-pt states no cause found, first time GERD yesterday 05/21/19, possible past kidney stone which pt may have passed, R shoulder dislocation. History of Any Multi-Drug Resistant Organisms: None Reported Past Surgical History: Hernia Repair, Orthopedic Surgery Additional Past Surgical History / Comment(s): Bilateral knee arthroscopic surgery, colonoscopy in 2016 with benign polyp, R inguinal hernia repair. Past Anesthesia/Blood Transfusion Reactions: No Reported Reaction Smoking Status: Never smoker - Past Family History Mother Family Medical History: Cancer Additional Family Medical History / Comment(s): Mother from breast cancer at the ageo9f 74 yrs. Father Family Medical History: Liver Disease Additional Family Medical History / Comment(s): Father had hx ETOH Medications and Allergies Home Medications Medication Instructions Recorded Confirmed Type Acetaminophen Tab [Tylenol Tab] 1,000 mg PO Q6HR PRN 05/22/19 05/22/19 History Allergies Allergy/AdvReac Type Severity Reaction Status Date / Time gluten AdvReac congested Verified 05/22/19 11:01 latex AdvReac congested Verified 05/22/19 11:01 Physical Exam Vitals: Vital Signs Temp Pulse Resp BP Pulse Ox 05/23/19 15:00 98.4 F 64 18 151/89 98 05/23/19 07:10 18 05/23/19 07:00 98.0 F 60 17 161/92 98 05/23/19 04:39 17 05/23/19 01:30 97.8 F 68 17 125/79 96 05/22/19 23:47 16 05/22/19 20:25 97.9 F 69 16 124/80 98 Intake and Output 05/23/19 05/23/19 05/23/19 06:59 14:59 22:59 Intake Total 500 Balance 500 Intake: Intake, IV Titration 500 Amount Sodium Chloride 0.9% 1, 500 000 ml @ 100 mls/hr IV . Q10H [facility] Rx#:[id number] Other: Voiding Method Toilet Toilet Toilet # Voids 1 Weight 77.111 kg On physical examination, patient appears comfortable in no apparent distress. HEAD: Normocephalic, atraumatic. EYES: No scleral icterus. No conjunctival injection. MOUTH: No lesions, tongue midline. NECK: Trachea midline, no gross abnormalities. CHEST: Clear to auscultation with no wheezing or rhonchi appreciated. HEART: Regular rate and rhythm. ABDOMEN: Soft, mildly tender to palpation worse in the left lower quadrant. Alicia l sounds are positive. No organomegaly. No guarding or rigidity. EXTREMITIES: No pedal edema. SKIN: No rashes, no jaundice. NEUROLOGIC: Alert and oriented x3. No focal deficits. Results CBC & Chem 7: 05/22/19 10:15 05/22/19 10:15 Labs: Microbiology - Last 24 Hours (Table) 05/22/19 10:15 Blood Culture - Preliminary Blood No Growth after 24 hours Abdominal x-ray: report reviewed (KUB x-ray with no evidence of pneumoperitoneum) Assessment and Plan (1) Diverticulitis of colon with perforation Narrative/Plan: 63-year-old with mulcal comorbidities including recent hospitalization for acute infectious colitis presenting back with abdominal pain and contained perforation on CT of the abdomen. Patient started on broad-spectrum antibiotic therapy with improved symptoms today. Tolerating ice chips and popsicles. Current Visit: Yes Status: Acute Code(s): K57.20 - DVTRCLI OF LG INT W PERFORATION AND ABSCESS W/O BLEEDING SNOMED Code(s): 47920442 (2) Elevated LFTs Narrative/Plan: Stable mild elevation of liver enzymes with no evidence of cholelithiasis or cholecystitis likely secondary to nonalcoholic fatty liver disease. Current Visit: Yes Status: Acute Code(s): R94.5 - ABNORMAL RESULTS OF LIVER FUNCTION STUDIES SNOMED Code(s): 131548444 Plan: Supportive care Continue to monitor symptoms Appreciate recommendations from surgical service Continue broad-spectrum antibiotic therapy Will defer management of diet to surgical service Thank you for allowing us to participate in the care of the patient we will continue to follow
[2019-05-23] MEDS ORDERED: ENOXAPARIN 40 MG/0.4 ML SYRINGE SQ SCH (22:00)
[2019-05-24] MEDS: PIPERACILLIN-TAZOBACTAM 3.375 GM in SODIUM CHLORIDE 0.9% 100 ML IVPB SCH ×2 (00:59→11:35)
[2019-05-24] MEDS: KETOROLAC 30 MG/ML 1 ML VIAL IVP PRN ×2 (01:25→16:24)
[2019-05-24] MEDS: metroNIDAZOLE-NS PMX 500 MG in SALINE 1 100ML.BAG IVPB SCH (05:03)
[2019-05-24] MEDS: SODIUM CHLORIDE 0.9% 1,000 ML IV SCH ×2 (05:05→11:37)
[2019-05-24] MEDS: LORATADINE-PSEUDOEPH 5-120 MG 1 EACH TAB.ER.12H PO SCH (08:06)
[2019-05-24] MEDS: PANTOPRAZOLE 40 MG/10 ML VIAL IV SCH (08:07)
[2019-05-24 10:57] VITALS: BP 136/80; PULSE 65; RESP 17; TEMP 98.5
[2019-05-24] MEDS ORDERED: metroNIDAZOLE-NS PMX 500 MG in SALINE 1 100ML.BAG IVPB SCH (11:00)
--- NOTE | 2019-05-24 12:07 | P.PN ---
Subjective Progress Note Date: 05/24/19 CHIEF COMPLAINT: Diverticulitis HISTORY OF PRESENT ILLNESS: The patient is a 63-year-old male admitted secondary to perforated diverticulitis and left lower quadrant abdominal pain. He was on low fiber diet. He reports more soreness today than yesterday after eating. He did have a bowel movement after 4 days, . He is anxious to go home. ROS: No reports of nausea and vomiting. No fevers or chills. No new chest pain. No productive sputum PHYSICAL EXAM: VITAL SIGNS: Reviewed CONSTITUTIONAL: Well developed and in no acute distress. EYES: Conjuctivae without sclera icterus. Extraocular movements grossly intact. HEAD, EARS, NOSE, THROAT: Moist buccal mucosa. Head is atraumatic, normocephalic. Hears conversational speech. No nasal drainage. NECK: Supple. No thyroidomegaly. RESPIRATORY: Non-labored respirations and equal bilateral excursions. CARDIOVASCULAR: Palpable 2+ radial pulses. Regular rate. Regular rhythm. ABDOMEN: Soft. No peritonitis. Mild tenderness at left lower quadrant. MUSCULOSKELETAL: No gross deformity of the lower extremities noted. No clubbing. No cyanosis. SKIN: Good skin turgor. Well perfused. NEUROLOGIC: Cranial nerves I through XII grossly intact. No focal or lateralizing signs. PSYCH: Appropriate affect. Alert and oriented to person, place and time. CLINICAL LABS: White blood cell count normal, no new blood draw STUDIES: Ultrasound of abdomen independently shows no gallstones or gallbladder wall thickening ASSESSMENT: 1. Localized perforated diverticulitis, sigmoid colon PLAN: 1. I asked him to assess after eating his diet for lunch as he reports increased pain. 2. Will repeat CBC 3. Hold discharge until he is feeling better Objective - Vital Signs Vital signs: Vital Signs Temp 98.5 F 05/24/19 08:01 Pulse 65 05/24/19 08:01 Resp 17 05/24/19 08:01 BP 136/80 05/24/19 08:01 Pulse Ox 99 05/24/19 08:01 Intake & Output 05/23/19 05/24/19 05/24/19 17:59 06:59 18:59 Intake Total 680 Balance 680 Weight Intake: Intake, IV Titration 100 Amount Piperacillin-Tazobactam 3 .375 gm In Sodium Chloride 0.9% 100 ml @ 25 mls/hr IVPB Q8H [facility] Rx#: [id number] Sodium Chloride 0.9% 1, 000 ml @ 100 mls/hr IV . Q10H [facility] Rx#:[id number] metroNIDAZOLE-NS PMX 500 mg In Saline 1 100ml.bag @ 100 mls/hr IVPB Q6H [facility] Rx#:[id number] metroNIDAZOLE-NS PMX 500 100 mg In Saline 1 100ml.bag @ 100 mls/hr IVPB Q6H [facility] Rx#:[id number] Oral 580 Other: Voiding Method Toilet # Voids 2 # Bowel Movements 0 - Labs CBC & Chem 7: 05/22/19 10:15 05/22/19 10:15 Labs: Microbiology - Last 24 Hours (Table) 05/22/19 10:15 Blood Culture - Preliminary Blood No Growth after 24 hours Assessment and Plan (1) Diverticulitis of colon with perforation Current Visit: Yes Status: Acute Code(s): K57.20 - DVTRCLI OF LG INT W PERFORATION AND ABSCESS W/O BLEEDING SNOMED Code(s): 67455094 (2) Elevated LFTs Current Visit: Yes Status: Acute Code(s): R94.5 - ABNORMAL RESULTS OF LIVER FUNCTION STUDIES SNOMED Code(s): 067600911
[2019-05-24 13:25] LABS: Basophils % (A) 0 %; Eosinophils # (A) 0.1 k/uL (0-0.7); Eosinophils % (A) 1 %; HCT 39.4 % (39.0-53.0); HGB 12.6 gm/dL (13.0-17.5); Lymphocytes # (A) 0.3 k/uL (1.0-4.8); Lymphocytes % (A) 5 %; MCH 29.6 pg (25.0-35.0); MCHC 32.1 g/dL (31.0-37.0); MCV 92.1 fL (80.0-100.0); Mean Platelet Volume 7.1; Monocytes # (A) 0.1 k/uL (0-1.0); Monocytes % (A) 1 %; Neutrophils # (A) 6.9 k/uL (1.3-7.7); Neutrophils % (A) 93 %; Platelet Count 507 k/uL (150-450); RBC 4.28 m/uL (4.30-5.90); RDW 12.9 % (11.5-15.5); WBC 7.4 k/uL (3.8-10.6)
--- NOTE | 2019-05-24 17:57 | P.PN ---
Subjective Progress Note Date: 05/24/19 Principal diagnosis: Diverticulosis with contained perforation of the bowel Patient seen lying in bed does report some worsened abdominal pain after eating today. Previously had been feeling well. No nausea or vomiting. Objective - Vital Signs Vital signs: Vital Signs Temp 98.1 F 05/24/19 03:47 Pulse 70 05/24/19 03:47 Resp 18 05/24/19 03:47 BP 108/63 05/24/19 03:47 Pulse Ox 99 05/24/19 03:47 Intake & Output 05/23/19 05/24/19 05/24/19 17:59 06:59 18:59 Intake Total Balance Weight Intake: Intake, IV Titration Amount Piperacillin-Tazobactam 3 .375 gm In Sodium Chloride 0.9% 100 ml @ 25 mls/hr IVPB Q8H [facility] Rx#: [id number] Sodium Chloride 0.9% 1, 000 ml @ 100 mls/hr IV . Q10H [facility] Rx#:[id number] metroNIDAZOLE-NS PMX 500 mg In Saline 1 100ml.bag @ 100 mls/hr IVPB Q6H [facility] Rx#:[id number] Other: Voiding Method # Voids - Exam On physical examination, patient appears comfortable in no apparent distress. HEAD: Normocephalic, atraumatic. EYES: No scleral icterus. No conjunctival injection. MOUTH: No lesions, tongue midline. NECK: Trachea midline, no gross abnormalities. ABDOMEN: Soft, moderately tender to palpation worse in the left lower abdomen. Bowel sounds are positive. No organomegaly. No guarding or rigidity. EXTREMITIES: No pedal edema. SKIN: No rashes, no jaundice. NEUROLOGIC: Alert and oriented x3. No focal deficits. - Labs CBC & Chem 7: 05/24/19 12:54 05/22/19 10:15 Labs: Microbiology - Last 24 Hours (Table) 05/22/19 10:15 Blood Culture - Preliminary Blood No Growth after 24 hours Assessment and Plan (1) Diverticulitis of colon with perforation Narrative/Plan: 63-year-old with mulcal comorbidities including recent hospitalization for acute infectious colitis presenting back with abdominal pain and contained perforation on CT of the abdomen. Patient started on broad-spectrum antibiotic therapy with improved symptoms yesterday and this morning, however did have some worsening abdominal pain after eating. Status: Acute Code(s): K57.20 - DVTRCLI OF LG INT W PERFORATION AND ABSCESS W/O BLEEDING SNOMED Code(s): 35443404 (2) Elevated LFTs Narrative/Plan: Stable mild elevation of liver enzymes with no evidence of cholelithiasis or cholecystitis likely secondary to nonalcoholic fatty liver disease. Status: Acute Code(s): R94.5 - ABNORMAL RESULTS OF LIVER FUNCTION STUDIES SNOMED Code(s): 299747350 Plan: Supportive care Continue to monitor symptoms Appreciate recommendations from surgical service Continue broad-spectrum antibiotic therapy Will defer management of diet to surgical service Thank you for allowing us to participate in the care of the patient we will continue to follow
--- NOTE | 2019-05-24 21:41 | P.PN ---
Progress Note - Text Progress Note Date: 05/23/19 Chief Complaint: Abdominal pain History of presenting complaint: This is a very pleasant 63-year-old patient of Dr. Maria E Melton. Patient was recently in the hospital from May 05 through May 08. Computed tomography scan on that admission was suggestive of colitis. Patient did receive ceftriaxone and Flagyl. Patient also was positive for E. coli bacteremia. On the day of discharge with no further abdominal pain. Did much better. Patient was discharged on ciprofloxacin and Flagyl. Patient states that when he went home his symptoms started to come back. As he does not like hospitals in the report to come back. Started having gradually worsening abdominal pain. Also is having some chills. Occasional nausea. He did take his 10 day course of antibiotic. As symptoms became much worse and decided to come in. Patient was seen by GI and ID in the last admission. Patient had an outpatient computed tomography scan done yesterday that did show ascending colon diverticular disease with a small contained perforation. Patient started on IV Zosyn size and the ER and admitted for the same. Started on IV fluids. Admitted with acute diverticulitis with contained perforation. Started on IV Zosyn and IV Flagyl. Today-abdominal pain is a bit better. Small bowel movement. No fever no chills. Has been out of bed. Review of systems: Was done for constitutional, cardiovascular, GI, pulmonary. relevant finding as above Current medications reviewed that his electronic records Physical examination: VITAL SIGNS: 98.4, 64, 18, 151/89, 98% on room air GENERAL: Laying in bed, awake EYES: Pupils equal. Conjunctiva normal. HEENT: External appearance of nose and ears normal, oral cavity grossly normal. Hard of hearing NECK: JVD not raised; masses not palpable. HEART: First and second heart sounds are normal; no edema. LUNGS: Respiratory rate normal; clear to auscultation. ABDOMEN: Soft, decreased left lower quadrant tenderness, no guarding rigidity liver spleen not palpable, no masses palpable. PSYCH: Alert and oriented x3; mood and affect normal. INVESTIGATIONS, reviewed in the clinical context: White count 6.1 hemoglobin 14.1 platelets 673 potassium 3.7 creatinine 0.89 AST 32 ALT 82 Computed tomography scan of the abdomen from yesterday-diverticulitis with contained perforation Assessment: -Acute diverticulitis in a patient who recently had colitis and had completed a course of antibiotic now presents with worsening pain and a contained perforation. Patient has no white count no fever.-Slowly improving -Colonic diverticulosis -Hepatic steatosis -Left kidney stone asymptomatic -Hard of hearing Plan: Continue IV Flagyl and IV Zosyn. IV fluids. Discussed with patient. That slowly being advanced. Encouraged to be out of bed.
--- NOTE | 2019-05-24 21:51 | P.DS ---
Providers Date of admission: 05/22/19 11:26 Expected date of discharge: 05/24/19 Attending physician: Genaro Schmidt Consults: 05/22/19 11:27 Consult Physician Urgent Consulting Provider: Julianne Dobson Consult Reason/Comments: acute diverticulitis with perforation Do you want consulting provider notified?: Already Contacted 05/22/19 11:46 Consult Physician Stat Consulting Provider: Wilber Do Consult Reason/Comments: Colitis hx, diverticulitis perf Do you want consulting provider notified?: Yes Primary care physician: Anish Melton [facility] Course: Chief Complaint: Abdominal pain History of presenting complaint: This is a very pleasant 63-year-old patient of Dr. Maria E Melton. Patient was recently in the hospital from May 05 through May 08. Computed tomography scan on that admission was suggestive of colitis. Patient did receive ceftriaxone and Flagyl. Patient also was positive for E. coli bacteremia. On the day of discharge with no further abdominal pain. Did much better. Patient was discharged on ciprofloxacin and Flagyl. Patient states that when he went home his symptoms started to come back. As he does not like hospitals in the report to come back. Started having gradually worsening abdominal pain. Also is having some chills. Occasional nausea. He did take his 10 day course of antibiotic. As symptoms became much worse and decided to come in. Patient was seen by GI and ID in the last admission. Patient had an outpatient computed tomography scan done yesterday that did show ascending colon diverticular disease with a small contained perforation. Patient started on IV Zosyn size and the ER and admitted for the same. Started on IV fluids. Admitted with acute diverticulitis with contained perforation. Started on IV Zosyn and IV Flagyl. Today-had a bowel movement. Mild abdominal pain. Seen by GI and surgery today. Cleared by both for discharge. No fever no chills. Patient very keen to go home. Discussed at length with the patient different outcomes. Also discussed diet in detail. Discussion and discharge planning more than 35 minutes Consultation: Dr. Umana from GI Dr. Longoria from general surgery Physical examination: VITAL SIGNS: 98.5, 65, 16, 136/80, 99% GENERAL: Laying in bed, comfortable EYES: Pupils equal. Conjunctiva normal. HEENT: External appearance of nose and ears normal, oral cavity grossly normal. Hard of hearing NECK: JVD not raised; masses not palpable. HEART: First and second heart sounds are normal; no edema. LUNGS: Respiratory rate normal; clear to auscultation. ABDOMEN: Soft, minimal left lower quadrant tenderness, no guarding rigidity liver spleen not palpable, no masses palpable. PSYCH: Alert and oriented x3; mood and affect normal. INVESTIGATIONS, reviewed in the clinical context: White count 7.4, hemoglobin 12.6, platelets 507 White count 6.1 hemoglobin 14.1 platelets 673 potassium 3.7 creatinine 0.89 AST 32 ALT 82 Computed tomography scan of the abdomen from yesterday-diverticulitis with contained perforation Assessment: -Acute diverticulitis in a patient who recently had colitis and had completed a course of antibiotic now presents with worsening pain and a contained perforation. Patient has no white count no fever.-Improving -Colonic diverticulosis -Hepatic steatosis -Left kidney stone asymptomatic -Hard of hearing Disposition: Home Patient Condition at Discharge: Stable Plan - Discharge Summary Discharge Rx Participant: No New Discharge Prescriptions: New Amoxicillin/Potassium Clav [Augmentin 875-125 Tablet] 1 tab PO Q12HR #28 tab metroNIDAZOLE [Flagyl] 500 mg PO Q6H #56 tab Continue Acetaminophen Tab [Tylenol] 1,000 mg PO Q6HR PRN PRN Reason: Pain Discharge Medication List Acetaminophen Tab [Tylenol] 1,000 mg PO Q6HR PRN 05/22/19 [History] Amoxicillin/Potassium Clav [Augmentin 875-125 Tablet] 1 tab PO Q12HR #28 tab 05/24/19 [Rx] metroNIDAZOLE [Flagyl] 500 mg PO Q6H #56 tab 05/24/19 [Rx] Follow up Appointment(s)/Referral(s): Julianne Dobson MD [STAFF PHYSICIAN] - 1 Week (office closed please call to make appointment) Anish Melton DO [Primary Care Provider] - 1-2 days (office closed please call to make appointment) Wilber Do MD [STAFF PHYSICIAN] - 1 Week (office closed please call to make appointment) Patient Instructions/Handouts: Diverticulitis (DC) Activity/Diet/Wound Care/Special Instructions: soft bland diet Discharge Disposition: HOME SELF-CARE
== END 2019-05-24 16:49 | disposition home or self-care (01) ==
LOC: EC 09:16 → INTOOBSV 11:26 → 4SSUR 11:26 → UNDODISIN 05-24 16:49
PROVIDERS: ADMIT Hospitalist; ATTEND Hospitalist
DX: K57.20 Diverticulitis of large intestine with perforation and abscess without bleeding (principal); K76.0 Fatty (change of) liver, not elsewhere classified; N20.0 Calculus of kidney; H91.93 Unspecified hearing loss, bilateral; H93.13 Tinnitus, bilateral; K21.9 Gastro-esophageal reflux disease without esophagitis; Z87.19 Personal history of other diseases of the digestive system; Z91.018 Allergy to other foods; Z91.040 Latex allergy status; Z98.890 Other specified postprocedural states; Z86.19 Personal history of other infectious and parasitic diseases; Z86.2 Personal history of diseases of the blood and blood-forming organs and certain disorders involving the immune mechanism; Z86.010 Personal history of colon polyps; Z86.69 Personal history of other diseases of the nervous system and sense organs; Z80.3 Family history of malignant neoplasm of breast; Z83.79 Family history of other diseases of the digestive system; Z81.1 Family history of alcohol abuse and dependence
CPT/HCPCS: 96376 ×3; 96361 ×3; 96366 ×3; 96367; 96372 ×2; 96375 ×2; 96368; 96365; 99285; 36415; 80053 ×2; 82150; 83605; 83690; 85025 ×3; 85610; 85730; 87040 ×2; 74018; 76705; 74177; G0378 ×3; J2543 ×3; J2270; J2405; J1650 ×2; J1885 ×3; C9113 ×3; Q9967

== ENCOUNTER → 2019-08-17 | Outpatient (CLI) | payer BC | END | disposition home or self-care (01) | LOC: LABWHC1 08:11 | PROVIDERS: ATTEND Internal Medicine Gastroenterology | DX: Z11.59 Encounter for screening for other viral diseases (principal) ==

== ENCOUNTER 2019-08-20 09:29 | Day surgery (SDC) | payer BC ==
[2019-08-19 11:30] VITALS: BMI 23.7
[~2019-08-20 09:29] MED LIST: LACTATED RINGERS 1,000 ML IV SCH
[2019-08-20 09:55] VITALS: TEMP 98.1
[2019-08-20] MEDS ORDERED: LIDOCAINE 1% INJ 10MG/ML (20 ML MDV) ONE (10:54)
[2019-08-20] MEDS ORDERED: PROPOFOL 10 MG/ML 20 ML VIAL IV ONE (10:54)
--- NOTE | 2019-08-20 11:19 | P.PCN ---
Date of Procedure: 08/20/19 Procedure(s) Performed: Brief history: Patient is a pleasant 63-year-old white male scheduled for an elective upper endoscopy as well as colonoscopy as a part of evaluation of epigastric pain and recent episode of acute sigmoid diverticulitis complicated by perforation and was hospitalized and with antibiotics now doing well. Has occasional change in bowel habits. Procedure performed: Esophagogastroduodenoscopy with biopsy Colonoscopy Preoperative diagnosis: Epigastric pain/recent history of acute sigmoid diverticulitis Anesthesia: MAC Procedure: After informed consent was obtained from the patient was brought into the endoscopy unit and IV sedation was administered by anesthesia under continuous monitoring. Initially upper endoscopy was done. The Olympus GF 160 video endoscope was inserted inserted into the mouth and esophagus intubated without any difficulty and was gradually advanced into the stomach and duodenum and carefully examined. The bulb and second part of the duodenum appeared normal. The scope was then withdrawn into the stomach adequately insufflated with air a nd upon careful examination the antrum and body, cardia and fundus appeared normal. The scope was then withdrawn into the esophagus. The GE junction was located at 40 cm to the incisors. It appeared regular with no erythema erosions or ulcerations. Rest of the esophagus appeared normal. Patient tolerated the procedure well. At this time the patient continued to remain sedation. Initial digital rectal examination was normal. Olympus CF 160 video colonoscope was then inserted into the rectum and gradually advanced to the cecum without any difficulty. Careful examination was performed as the scope was gradually being withdrawn. The prep was excellent. The cecum, ascending colon, transverse colon, descending colon, sigmoid colon and rectum appeared normal. Scattered sigmoidal diverticulosis seen. Retroflexion was performed in the rectum and no lesions were noted. Patient tolerated the procedure well. Impression: 1. Upper endoscopy revealed mild antral gastritis and duodenitis 2. Colonoscopy revealed scattered sigmoid diverticulosis but no evidence of colitis or colorectal neoplasia. Recommendations: Findings of this examination were discussed with the patient as well as his family. He was advised to follow with the biopsy results.. He will continue with a high-fiber diet. He can have a repeat screening colonoscopy in 10 years.
[2019-08-20 11:29] VITALS: RESP 18
[2019-08-20 11:40] VITALS: BP 138/88; PULSE 65
--- NOTE | 2019-08-25 06:38 | CDI ---
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 Please respond to the clarification below the line at the bottom and electronically sign. The [facility] Coding staff will review the response and follow-up if needed. Please note: Queries are made part of the Legal Health Record. If you have any questions, please contact the Physical Therapy Supervisor. Dear Dr. Murillo You have mentioned EGD w/biopsy in preop performed, but the biopsy site/type is not mentioned in the procedure description. Please document. Thank you for your kind consideration. Dictated as an addendum Mary MTDD
== END 2019-08-20 11:54 | disposition home or self-care (01) ==
LOC: ORWHC2ENDO 09:29
PROVIDERS: ATTEND Internal Medicine Gastroenterology
DX: K29.50 Unspecified chronic gastritis without bleeding (principal); K29.80 Duodenitis without bleeding; K57.30 Diverticulosis of large intestine without perforation or abscess without bleeding; H91.90 Unspecified hearing loss, unspecified ear; K90.41 Non-celiac gluten sensitivity; Z91.040 Latex allergy status; Z88.0 Allergy status to penicillin; Z87.898 Personal history of other specified conditions; Z86.19 Personal history of other infectious and parasitic diseases
CPT/HCPCS: 88305; 45378; 43239; J2001; J2704

== ENCOUNTER → 2019-11-27 | Outpatient (CLI) | payer BC ==
--- NOTE | 2019-11-27 12:13 | XR ---
EXAMINATION TYPE: XR shoulder complete LT DATE OF EXAM: 11/27/2019 COMPARISON: NONE HISTORY: Pain TECHNIQUE: Three views are submitted. FINDINGS: The osseous structures are intact. There is no acute fracture or dislocation. Mild AC joint arthropa thy. IMPRESSION: 1. Mild AC joint arthropathy.
== END | disposition home or self-care (01) ==
LOC: RADXRMAIN 11:33
PROVIDERS: ATTEND Family Medicine
DX: M19.012 Primary osteoarthritis, left shoulder (principal)

== ENCOUNTER → 2019-12-03 | Outpatient (CLI) | payer BC ==
--- NOTE | 2019-12-03 13:04 | CT ---
EXAMINATION TYPE: CT sinus wo con DATE OF EXAM: 12/03/2019 COMPARISON: None HISTORY: Chronic sinusitis. CT DLP: 642.5 mGycm CONTRAST: 0 mL of Isovue 300 The paranasal sinuses are examined in the axial plane at 2 mm thick sections. Reconstructed images i n the coronal plane were obtained. There is dental amalgam scatter artifact Small retention cysts are within the bilateral maxillary sinuses. There is mild mucosal thickening t hroughout the ethmoid air cells. Mucosal thickening is within the left sphenoid sinus. Some mild muco cesar thickening is within the right sphenoid sinus. There is a retention cyst within the inferior left frontal sinus. Mild mucosal thickening is within the left upper frontal sinus. Frontal sinuses are o therwise clear. The septum is evaluated. There is septal deviation to the right. The ostiomeatal units are patent. Is been prior uncinectomies. Bilateral jose bullosa are present IMPRESSIONS: 1. Diffuse mucosal thickening through maxillary ethmoid and left frontal sinuses. 2. No acute sinusitis changes.
== END | disposition home or self-care (01) ==
LOC: RADCTMAIN 11:03
PROVIDERS: ATTEND Family Medicine
DX: J32.0 Chronic maxillary sinusitis (principal)
CPT/HCPCS: 70486

== ENCOUNTER → 2021-01-30 | Outpatient (CLI) | payer BC ==
--- NOTE | 2021-01-31 11:24 | XR ---
Left foot HISTORY: Left foot pain 3 views of the left foot No comparisons Bone mineralization, joint spaces and alignment are maintained with exception of some degenerative ch papa first metatarsophalangeal joint. I question some flattening of the second metatarsal head. Ques tion some spurring at the tibiotalar joint. There is a plantar calcaneal spur. Enthesophyte present a t the insertion of the Achilles tendon. 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
== END | disposition home or self-care (01) ==
LOC: RADXRMAIN 17:53
PROVIDERS: ATTEND Family Medicine
DX: M25.775 Osteophyte, left foot (principal)